=== PATIENT | male | born 1970 | race African-American/Black ===

== ENCOUNTER 2018-04-20 11:36 | Inpatient (IN) | payer OTHER ==
[2018-04-20 12:03] VITALS: BMI 24.9
--- NOTE | 2018-04-20 13:42 | HP ---
COWS - Scale Resting Pulse: 4= [place] > 121 Sweatin= Chills/Flushing Restless Observation: 3= Extraneous Movement Pupil Size: 0= Normal to Room Light Bone or Joint Aches: 4=Acute Joint/Muscle Pain Runny Nose/ Eye Tearin= None GI Upset > 30mins: 3= Vomiting/Diarrhea Tremor Observation: 1= Tremor [place], Not Seen Yawning Observation: 0= None Anxiety or Irritability: 1=Feels Anxious/Irritable Goose Flesh Skin: 0=Smooth Skin COWS Score: 17 CIWA Score - CIWA Score Nausea/Vomitin Muscle Tremors: 2 Anxiety: 4-Mod. Anxious/Guarded Agitation: 3 Paroxysmal Sweats: 1-Minimal Palms Moist Orientation: 0-Oriented Tacttile Disturbances: 0-None Auditory Disturbances: 0-None Visual Disturbances: 0-None Headache: 0-None Present CIWA-Ar Total Score: 15 Admission ROS S - HPI Chief Complaint: HEROIN AND ALCOHOL WITHDRAWAL SX Allergies/Adverse Reactions: Allergies Allergy/AdvReac Type Severity Reaction Status Date / Time No Known Allergies Allergy Verified 04/20/18 12:32 History of Present Illness: 47 Y/O AA/MALE WITH A HX OF HEROIN AND ALCOHOL DEPENDENCE SEEKING DETOX [place]. Exam Limitations: No Limitations, Clinical Condition - Ebola screening Have you traveled outside of the country in the last 21 days: No (N) Have you had contact with anyone from an Ebola affected area: No Have you been sick,other than usual withdrawal symptoms: No Do you have a fever: No - Review of Systems Constitutional: Chills, Loss of Appetite, Night Sweats, Changes in sleep, Unintentional Wgt. Loss EENT: reports: Tearing, Nose Congestion, Dental Problems (MISSING TEETH) Respiratory: reports: No Symptoms reported Cardiac: reports: No Symptoms Reported GI: reports: Diarrhea, Nausea, Poor Appetite, Poor Fluid Intake, Vomiting, Indigestion, Abdominal cramping : reports: No Symptoms Reported Musculoskeletal: reports: Back Pain, Joint Pain, Muscle Pain Integumentary: reports: Bruising (IVD INJ SITES ON BOTH ARMS RIGHT >LEFT ARM.) Neuro: reports: Tremors, Unsteady Gait (DUE TO ALCOHOL INTOXICATION) Endocrine: reports: No Symptoms Reported Hematology: reports: No Symptoms Reported Psychiatric: reports: Orientated x3 Other Systems: Reviewed and Negative Patient History - Patient Medical History Hx Anemia: No Hx Asthma: No Hx Chronic Obstructive Pulmonary Disease (COPD): No Hx Cancer: No Hx Cardiac Disorders: No Hx Congestive Heart Failure: No Hx Hypertension: No Hx Hypercholesterolemia: No Hx Pacemaker: No HX Cerebrovascular Accident: No Hx Seizures: No Hx Dementia: No Hx Diabetes: No Hx Gastrointestinal Disorders: No Hx Liver Disease: No Hx Genitourinary Disorders: No Hx Sexually Transmitted Disorders: No Hx Renal Disease (ESRD): No Hx Thyroid Disease: No Hx Human Immunodeficiency Virus (HIV): No (LAST NEGATIVE 2014) Hx Hepatitis C: No Hx Depression: No (BUT WANTS TO SEE PSYCH) Hx Suicide Attempt: No (DENIES S/I) Hx Bipolar Disorder: No Hx Schizophrenia: No Other Medical History: INSOMNIA AND WANTS TO SEE PSYCH - Patient Surgical History Past Surgical History: No Hx Neurologic Surgery: No Hx Cataract Extraction: No Hx Cardiac Surgery: No Hx Lung Surgery: No Hx Breast Surgery: No Hx Breast Biopsy: No Hx Abdominal Surgery: No Hx Appendectomy: No Hx Cholecystectomy: No Hx Genitourinary Surgery: No Hx Orthopedic Surgery: No Anesthesia Reaction: No - PPD History Previous Implant?: Yes Documented Results: Negative w/o proof Implanted On Prior R Admission?: Yes Date: 04/29/16 Results: 0 mm PPD to be Administered?: Yes - Reproductive History Patient is a Female of Child Bearing Age (11 -55 yrs old): No (MALE) - Smoking Cessation Smoking history: Current every day smoker Have you smoked in the past 12 months: Yes Aproximately how many cigarettes per day: 10 Cigars Per Day: 20 Hx Chewing Tobacco Use: No Initiated information on smoking cessation: Yes 'Breaking Loose' booklet given: 04/20/18 - Substance & Tx. History Hx Alcohol Use: Yes (VODKA/BEER) Hx Substance Use: Yes (HEROIN) Substance Use Type: Alcohol, Heroin Hx Substance Use Treatment: Yes (LAST TX AT [facility] IN 2016) - Substances Abused Heroin Route: Injection Frequency: Daily Amount used: 6-7 BAGS Age of first use: 31 Date of Last Use: 04/19/18 Alcohol Route: Oral Frequency: Daily Amount used: 1 PINT VODKA Age of first use: 21 Date of Last Use: 04/19/18 Family Disease History - Family Disease History Family History: Denies Admission Physical Exam BHS - Vital Signs Vital Signs: Vital Signs - 24 hr 04/20/18 11:58 Temperature 98.7 F Pulse Rate 137 H Respiratory 18 Rate Blood Pressure 117/76 - Physical General Appearance: Yes: Moderate Distress, Irritable, Anxious HEENTM: Yes: EOMI, Normocephalic, FORREST, Pharynx Normal Respiratory: Yes: Chest Non-Tender, Lungs Clear, Normal Breath Sounds, No Respiratory Distress Neck: Yes: No masses,lesions,Nodules, Supple, Trachea in good position Breast: Yes: Breast Exam Deferred Cardiology: Yes: Regular Rhythm, Regular Rate, S1, S2 Abdominal: Yes: Normal Bowel Sounds, Non Tender, Flat, Soft Genitourinary: Yes: Other (N/A) Back: Yes: Within Normal Limits Musculoskeletal: Yes: full range of Motion, Gait Steady Extremities: Yes: Normal Range of Motion, Non-Tender Neurological: Yes: senior production manager II-XII NML intact, Fully Oriented, Alert, Motor Strength 5/5 Integumentary: Yes: Dry, Warm Lymphatic: Yes: Within Normal Limits - Diagnostic (1) Cocaine dependence, uncomplicated Current Visit: Yes Status: Acute (2) Opioid dependence with withdrawal Current Visit: Yes Status: Acute (3) Weight decreased Current Visit: Yes Status: Acute (4) Nicotine dependence Current Visit: Yes Status: Acute Qualifiers: Nicotine product type: cigarettes Substance use status: in withdrawal Qualified Code(s): F17.213 - Nicotine dependence, cigarettes, with withdrawal Cleared for Admission [facility] - Detox or Rehab [facility] Level of Care: Medically Managed Detox Regimen/Protocol: Methadone/Librium [facility] Breath Alcohol Content Breath Alcohol Content: 0 Urine Drug Screen - Results Drug Screen Negative: No Urine Drug Screen Results: LYDIA-Cocaine, OPI-Opiates, BZO-Benzodiazepines, MTD- Methadone
[2018-04-20] MEDS ORDERED: MENTHOL/PHENOL 1 EACH UD MM PRN (13:58)
[2018-04-20] MEDS ORDERED: chlordiazePOXIDE HCL 25 MG CAPSULE PO PRN (13:58)
[2018-04-20] MEDS ORDERED: ACETAMINOPHEN 325 MG TABLET (FP) PO PRN (13:58)
[2018-04-20] MEDS ORDERED: P-EPHED 60MG/TRIPROLIDI 2.5MG TABLET PO PRN (13:58)
[2018-04-20] MEDS ORDERED: guaiFENesin/D-METHORPHAN HB 10 ML UNIT-DOSE CUPS PO PRN (13:58)
[2018-04-20] MEDS ORDERED: MAG HYDROX/AL HYDROX/SIMETH 30 ML UNIT-DOSE CUP PO PRN (13:58)
[2018-04-20] MEDS ORDERED: MAGNESIUM CITRATE 300 ML BOTTLE PO PRN (13:58)
[2018-04-20] MEDS ORDERED: MAGNESIUM HYDROX 2400MG/30ML ORAL SUSPENSION 30 ML CUP PO PRN (13:58)
[2018-04-20] MEDS ORDERED: IBUPROFEN 400 MG TABLET (FP) PO PRN (13:58)
[2018-04-20] MEDS ORDERED: LOPERAMIDE HCL 2 MG CAPSULE PO PRN (13:58)
[2018-04-20] MEDS ORDERED: NICOTINE POLACRILEX 2 MG GUM BUC PRN (14:01)
[2018-04-20] MEDS ORDERED: METHADONE HCL 10 MG TABLET (FOR DETOX USE ONLY) PO ONE ×2 (14:20→23:00)
[2018-04-20] MEDS: NICOTINE 14 MG/24 HOURS TOPICAL PATCH TD SCH (14:46)
--- NOTE | 2018-04-20 16:12 | CONSULT ---
[facility] Psychiatric Consult - Data Date of interview: 04/20/18 Admission source: [facility] Identifying data: Patient is a 47 year old single male, father of two, unemployed (not receiving any financial assistance), and currently residing with another individual. This is one of multiple admissions for patient. Pt. admitted to for cocaine and opiate dependence. Substance Abuse History: - Smoking Cessation. Smoking history: Current every day smoker. Have you smoked in the past 12 months: Yes. Aproximately how many cigarettes per day: 10. Cigars Per Day: 20. Hx Chewing Tobacco Use: No. Initiated information on smoking cessation: Yes. 'Breaking Loose' booklet given : 04/20/18. - Substance & Tx. History. Hx Alcohol Use: Yes (VODKA/BEER). Hx Substance Use: Yes (HEROIN). Substance Use Type: Alcohol, Heroin. Hx Substance Use Treatment: Yes (LAST TX AT [facility] IN 2015). - Substances Abused. Heroin. Route: Injection. Frequency: Daily. Amount used: 6-7 BAGS. Age of first use: 31. Date of Last Use: 04/19/18. Alcohol. Route: Oral. Frequency: Daily. Amount used: 1 PINT VODKA. Age of first use: 21. Date of Last Use: 04/19/18 Psychiatric History: Patient denies h/o psychiatric hospitalizations, outpatient care, and suicide attempt. Pt. reports difficulty sleeping. Physical/Sexual Abuse/Trauma History: Denies. Mental Status Exam - Mental Status Exam Alert and Oriented to: Time, Place, Person Cognitive Function: Good Patient Appearance: Well Groomed Mood: Euthymic Affect: Mood Congruent Patient Behavior: Cooperative Speech Pattern: Clear, Appropriate Voice Loudness: Normal Thought Process: Intact, Goal Oriented Thought Disorder: Not Present Hallucinations: Denies Suicidal Ideation: Denies Homicidal Ideation: Denies Insight/Judgement: Poor Sleep: Poorly Appetite: Fair Muscle strength/Tone: Normal Gait/Station: Normal Psychiatric Findings - Problem List ([place] 1, 2,3) (1) Substance-induced sleep disorder Current Visit: Yes Status: Acute (2) Cocaine dependence, uncomplicated Current Visit: Yes Status: Acute (3) Nicotine dependence Current Visit: Yes Status: Acute Qualifiers: Nicotine product type: cigarettes Substance use status: in withdrawal Qualified Code(s): F17.213 - Nicotine dependence, cigarettes, with withdrawal (4) Opioid dependence with withdrawal Current Visit: Yes Status: Acute (5) Substance induced mood disorder Current Visit: Yes Status: Acute - Initial Treatment Plan Initial Treatment Plan: Psychoeducation provided. Detoxifcation in progress. Ambien 10mg qhs prn ordered. Benefits and side effects discussed. Pt. made aware of the risk of parasomnia. Verbal consent given.
[2018-04-20 17:46] LABS: HEMATOCRIT 39.2 % (35.4-49); HEMOGLOBIN 12.8 GM/dL (11.7-16.9); MCH 27.7 pg (25.7-33.7); MCHC 32.6 g/dl (32.0-35.9); PLATELET COUNT 230 K/MM3 (134-434); RBC 4.61 M/mm3 (4.00-5.60); RDW 19.7 % (11.9-15.9); WHITE BLOOD COUNT 9.4 K/mm3 (4.0-10.0)
[2018-04-20 17:51] LABS: URINE APPEARANCE SLCLOUDY; URINE BILIRUBIN NEGATIVE (<2.0 mg/dL); URINE COLOR YELLOW; URINE GLUCOSE (UA) NEGATIVE (NEGATIVE); URINE KETONE NEGATIVE (NEGATIVE); URINE LEUK ESTERASE NEGATIVE (NEGATIVE); URINE NITRITE NEGATIVE (NEGATIVE); URINE PROTEIN NEGATIVE (NEGATIVE); URINE UROBILINOGEN NEGATIVE mg/dL (0.2-1.0)
[2018-04-20] MEDS: chlordiazePOXIDE HCL 25 MG CAPSULE PO SCH ×2 (18:16→22:11)
[2018-04-20 19:14] LABS: ALBUMIN 4.2 g/dl (3.4-5.0); ANION GAP 10 (8-16); BLOOD UREA NITROGEN 41 mg/dL (7-18); CALCIUM 8.9 mg/dL (8.5-10.1); CHLORIDE 98 mmol/L (98-107); CO2 26 mmol/L (21-32); GLUCOSE,RANDOM 199 mg/dL (74-106); POTASSIUM 5.2 mmol/L (3.5-5.1); SGOT/AST 34 U/L (15-37); SGPT/ALT 43 U/L (12-78); SODIUM 134 mmol/L (136-145)
[2018-04-20 19:17] LABS: ALK PHOS 80 U/L (45-117); BILIRUBIN,TOTAL 0.4 mg/dL (0.2-1.0); TOT PROT 8.2 g/dl (6.4-8.2)
[2018-04-20] MEDS ORDERED: MELATONIN 5 MG TABLETS PO PRN (22:00)
[2018-04-20] MEDS: THIAMINE HCL 100 MG TABLET (FP) PO SCH (22:10)
[2018-04-20] MEDS: ZOLPIDEM TARTRATE 10 MG TABLET (PARK CARE ONLY) PO PRN (22:11)
[2018-04-21] MEDS: chlordiazePOXIDE HCL 25 MG CAPSULE PO SCH ×4 (05:29→23:20)
[2018-04-21] MEDS ORDERED: METHADONE HCL 10 MG TABLET (FOR DETOX USE ONLY) PO SCH (10:00)
[2018-04-21] MEDS: PRENATAL VITAMINS W/ FOLIC ACID TABLET (FP) PO SCH (10:53)
[2018-04-21] MEDS: NICOTINE 14 MG/24 HOURS TOPICAL PATCH TD SCH (10:53)
--- NOTE | 2018-04-21 12:49 | PN ---
S CIWA - CIWA Score Nausea/Vomitin Muscle Tremors: 3 Anxiety: 3 Agitation: 3 Paroxysmal Sweats: 1-Minimal Palms Moist Orientation: 0-Oriented Tacttile Disturbances: 1-Very Mild Itch/Numbness Auditory Disturbances: 1-Very Mild Visual Disturbances: 0-None Headache: 2-Mild CIWA-Ar Total Score: 17 BHS COWS - Scale Resting Pulse: 2= [place] 101-120 Sweatin= Chills/Flushing Restless Observation: 3= Extraneous Movement Pupil Size: 1= Pupils >than Normal Bone or Joint Aches: 2= Severe Diffuse Aches Runny Nose/ Eye Tearin= Nasal Congestion GI Upset > 30mins: 2= Nausea/Diarrhea Tremor Observation of Outstretched Hands: 2= Slight Tremor Visible Yawning Observation: 1= 1-2x During Session Anxiety or Irritability: 2=Irritable/Anxious Goose Flesh Skin: 0=Smooth Skin COWS Score: 17 S Progress Note (SOAP) Subjective: alert,irritable anxious,interrupted sleep,tremor,pain in the body and back Objective: 04/21/18 12:46 Vital Signs Temperature 96.4 F L 04/21/18 10:28 Pulse Rate 105 H 04/21/18 10:28 Respiratory Rate 16 04/21/18 10:28 Blood Pressure 125/64 04/21/18 10:28 O2 Sat by Pulse Oximetry (%) ekg sinus tachycardia 123/min qt 308/440 no chest pain,no sob,no dizziness 04/21/18 12:48 Laboratory Last Values WBC 9.4 K/mm3 (4.0-10.0) D 04/20/18 14:00 RBC 4.61 M/mm3 (4.00-5.60) 04/20/18 14:00 Hgb 12.8 GM/dL (11.7-16.9) 04/20/18 14:00 Hct 39.2 % (35.4-49) 04/20/18 14:00 MCV 85.0 fl (80-96) 04/20/18 14:00 MCH 27.7 pg (25.7-33.7) 04/20/18 14:00 MCHC 32.6 g/dl (32.0-35.9) 04/20/18 14:00 RDW 19.7 % (11.9-15.9) H 04/20/18 14:00 Plt Count 230 K/MM3 (134-434) 04/20/18 14:00 MPV 10.0 fl (7.5-11.1) 04/20/18 14:00 Sodium 134 mmol/L (136-145) L 04/20/18 14:00 Potassium 5.2 mmol/L (3.5-5.1) H 04/20/18 14:00 Chloride 98 mmol/L (98-107) 04/20/18 14:00 Carbon Dioxide 26 mmol/L (21-32) 04/20/18 14:00 Anion Gap 10 (8-16) 04/20/18 14:00 BUN 41 mg/dL (7-18) H D 04/20/18 14:00 Creatinine 2.0 mg/dL (0.7-1.3) H D 04/20/18 14:00 Creat Clearance w eGFR 36.15 (>60) 04/20/18 14:00 Random Glucose 199 mg/dL (74-106) H D 04/20/18 14:00 Calcium 8.9 mg/dL (8.5-10.1) 04/20/18 14:00 Total Bilirubin 0.4 mg/dL (0.2-1.0) 04/20/18 14:00 AST 34 U/L (15-37) D 04/20/18 14:00 ALT 43 U/L (12-78) D 04/20/18 14:00 Alkaline Phosphatase 80 U/L (45-117) 04/20/18 14:00 Total Protein 8.2 g/dl (6.4-8.2) 04/20/18 14:00 Albumin 4.2 g/dl (3.4-5.0) 04/20/18 14:00 Urine Color Yellow 04/20/18 14:00 Urine Appearance Slcloudy 04/20/18 14:00 Urine pH 5.0 (5.0-8.0) 04/20/18 14:00 Ur Specific [place] 1.019 (1.001-1.035) 04/20/18 14:00 Urine Protein Negative (NEGATIVE) 04/20/18 14:00 Urine Glucose (UA) Negative (NEGATIVE) 04/20/18 14:00 Urine Ketones Negative (NEGATIVE) 04/20/18 14:00 Urine Blood Negative (NEGATIVE) 04/20/18 14:00 Urine Nitrite Negative (NEGATIVE) 04/20/18 14:00 Urine Bilirubin Negative (<2.0 mg/dL) 04/20/18 14:00 Urine Urobilinogen Negative mg/dL (0.2-1.0) 04/20/18 14:00 Ur Leukocyte Esterase Negative (NEGATIVE) 04/20/18 14:00 Assessment: 04/21/18 12:49 withdrawal symptom Plan: continue detox,encourage oral fluid,repeat cmp in am
--- NOTE | 2018-04-21 14:51 | EKG ---
Test Reason : Blood Pressure : / mmHG Vent. Rate : 123 BPM Atrial Rate : 123 BPM P-R Int : 126 ms QRS Dur : 082 ms QT Int : 308 ms P-R-T Axes : 063 033 034 degrees QTc Int : 440 ms SINUS TACHYCARDIA OTHERWISE NORMAL ECG NO PREVIOUS ECGS AVAILABLE Confirmed by MD Gaines Daniel ([id number]) on 04/21/2018 2:50:44 PM Referred By: Confirmed By:Andrew Gaines MD
[2018-04-21] MEDS: ZOLPIDEM TARTRATE 10 MG TABLET (PARK CARE ONLY) PO PRN (23:20)
[2018-04-21] MEDS: THIAMINE HCL 100 MG TABLET (FP) PO SCH (23:20)
[2018-04-22] MEDS: chlordiazePOXIDE HCL 25 MG CAPSULE PO SCH ×2 (06:30→12:11)
[2018-04-22 10:08] LABS: CHLORIDE 107 mmol/L (98-107); POTASSIUM 4.7 mmol/L (3.5-5.1); SODIUM 136 mmol/L (136-145)
[2018-04-22 10:26] LABS: ALBUMIN 3.6 g/dl (3.4-5.0); ALK PHOS 73 U/L (45-117); ANION GAP 4 (8-16); BILIRUBIN,TOTAL 0.2 mg/dL (0.2-1.0); BLOOD UREA NITROGEN 18 mg/dL (7-18); CALCIUM 9.2 mg/dL (8.5-10.1); CO2 25 mmol/L (21-32); GLUCOSE,RANDOM 207 mg/dL (74-106); SGOT/AST 22 U/L (15-37); SGPT/ALT 41 U/L (12-78); TOT PROT 7.4 g/dl (6.4-8.2)
[2018-04-22] MEDS: NICOTINE 14 MG/24 HOURS TOPICAL PATCH TD SCH (12:09)
[2018-04-22] MEDS: METHADONE HCL 5 MG TABLET (FOR DETOX USE ONLY) PO SCH (12:11)
[2018-04-22] MEDS: PRENATAL VITAMINS W/ FOLIC ACID TABLET (FP) PO SCH (12:11)
[2018-04-22] MEDS ORDERED: ONDANSETRON *ODT* 4 MG TABLET SL ONE (13:05)
--- NOTE | 2018-04-22 13:10 | PN ---
[facility] CIWA - CIWA Score Nausea/Vomitin-Mild Nausea/No Vomiting Muscle Tremors: 4-Moderate,w/Arms Extend Anxiety: 3 Agitation: 3 Paroxysmal Sweats: 1-Minimal Palms Moist Orientation: 0-Oriented Tacttile Disturbances: 1-Very Mild Itch/Numbness Auditory Disturbances: 0-None Visual Disturbances: 0-None Headache: 0-None Present CIWA-Ar Total Score: 13 BHS COWS - Scale Resting Pulse: 1= [place] 81-100 Sweatin= Chills/Flushing Restless Observation: 1= Difficult to Sit Still Pupil Size: 0= Normal to Room Light Bone or Joint Aches: 2= Severe Diffuse Aches Runny Nose/ Eye Tearin= Nasal Congestion GI Upset > 30mins: 2= Nausea/Diarrhea Tremor Observation of Outstretched Hands: 2= Slight Tremor Visible Yawning Observation: 1= 1-2x During Session Anxiety or Irritability: 2=Irritable/Anxious Goose Flesh Skin: 0=Smooth Skin COWS Score: 13 [facility] Progress Note (SOAP) Subjective: joint pain body ache sweat tremor trouble sleep at night Objective: 04/22/18 13:09 Vital Signs Temperature 98 F 04/22/18 09:56 Pulse Rate 97 H 04/22/18 09:56 Respiratory Rate 20 04/22/18 09:56 Blood Pressure 131/79 04/22/18 09:56 O2 Sat by Pulse Oximetry (%) Laboratory Last Values WBC 9.4 K/mm3 (4.0-10.0) D 04/20/18 14:00 RBC 4.61 M/mm3 (4.00-5.60) 04/20/18 14:00 Hgb 12.8 GM/dL (11.7-16.9) 04/20/18 14:00 Hct 39.2 % (35.4-49) 04/20/18 14:00 MCV 85.0 fl (80-96) 04/20/18 14:00 MCH 27.7 pg (25.7-33.7) 04/20/18 14:00 MCHC 32.6 g/dl (32.0-35.9) 04/20/18 14:00 RDW 19.7 % (11.9-15.9) H 04/20/18 14:00 Plt Count 230 K/MM3 (134-434) 04/20/18 14:00 MPV 10.0 fl (7.5-11.1) 04/20/18 14:00 Sodium 136 mmol/L (136-145) 04/22/18 08:50 Potassium 4.7 mmol/L (3.5-5.1) 04/22/18 08:50 Chloride 107 mmol/L (98-107) 04/22/18 08:50 Carbon Dioxide 25 mmol/L (21-32) 04/22/18 08:50 Anion Gap 4 (8-16) L 04/22/18 08:50 BUN 18 mg/dL (7-18) D 04/22/18 08:50 Creatinine 1.0 mg/dL (0.7-1.3) D 04/22/18 08:50 Creat Clearance w eGFR > 60 (>60) 04/22/18 08:50 Random Glucose 207 mg/dL (74-106) H 04/22/18 08:50 Calcium 9.2 mg/dL (8.5-10.1) 04/22/18 08:50 Total Bilirubin 0.2 mg/dL (0.2-1.0) D 04/22/18 08:50 AST 22 U/L (15-37) D 04/22/18 08:50 ALT 41 U/L (12-78) 04/22/18 08:50 Alkaline Phosphatase 73 U/L (45-117) 04/22/18 08:50 Total Protein 7.4 g/dl (6.4-8.2) 04/22/18 08:50 Albumin 3.6 g/dl (3.4-5.0) 04/22/18 08:50 Urine Color Yellow 04/20/18 14:00 Urine Appearance Slcloudy 04/20/18 14:00 Urine pH 5.0 (5.0-8.0) 04/20/18 14:00 Ur Specific [place] 1.019 (1.001-1.035) 04/20/18 14:00 Urine Protein Negative (NEGATIVE) 04/20/18 14:00 Urine Glucose (UA) Negative (NEGATIVE) 04/20/18 14:00 Urine Ketones Negative (NEGATIVE) 04/20/18 14:00 Urine Blood Negative (NEGATIVE) 04/20/18 14:00 Urine Nitrite Negative (NEGATIVE) 04/20/18 14:00 Urine Bilirubin Negative (<2.0 mg/dL) 04/20/18 14:00 Urine Urobilinogen Negative mg/dL (0.2-1.0) 04/20/18 14:00 Ur Leukocyte Esterase Negative (NEGATIVE) 04/20/18 14:00 RPR Titer Nonreactive (NONREACTIVE) 04/20/18 14:00 lab noted Assessment: 04/22/18 13:09 withdrawal sx Plan: continue detox
[2018-04-22] MEDS: chlordiazePOXIDE 5 MG CAPSULE PO SCH ×2 (17:55→22:10)
[2018-04-22] MEDS: THIAMINE HCL 100 MG TABLET (FP) PO SCH (22:10)
[2018-04-23] MEDS: chlordiazePOXIDE 5 MG CAPSULE PO SCH ×2 (06:33→11:34)
--- NOTE | 2018-04-23 11:03 | PN ---
S Progress Note (SOAP) Subjective: alert,irritable,anxious,interrupted sleep,pain in the body Objective: 04/23/18 11:01 Vital Signs Temperature 96.6 F L 04/23/18 09:20 Pulse Rate 99 H 04/23/18 09:20 Respiratory Rate 18 04/23/18 09:20 Blood Pressure 153/85 04/23/18 09:20 O2 Sat by Pulse Oximetry (%) 04/23/18 11:06 Laboratory Last Values WBC 9.4 K/mm3 (4.0-10.0) D 04/20/18 14:00 RBC 4.61 M/mm3 (4.00-5.60) 04/20/18 14:00 Hgb 12.8 GM/dL (11.7-16.9) 04/20/18 14:00 Hct 39.2 % (35.4-49) 04/20/18 14:00 MCV 85.0 fl (80-96) 04/20/18 14:00 MCH 27.7 pg (25.7-33.7) 04/20/18 14:00 MCHC 32.6 g/dl (32.0-35.9) 04/20/18 14:00 RDW 19.7 % (11.9-15.9) H 04/20/18 14:00 Plt Count 230 K/MM3 (134-434) 04/20/18 14:00 MPV 10.0 fl (7.5-11.1) 04/20/18 14:00 Sodium 136 mmol/L (136-145) 04/22/18 08:50 Potassium 4.7 mmol/L (3.5-5.1) 04/22/18 08:50 Chloride 107 mmol/L (98-107) 04/22/18 08:50 Carbon Dioxide 25 mmol/L (21-32) 04/22/18 08:50 Anion Gap 4 (8-16) L 04/22/18 08:50 BUN 18 mg/dL (7-18) D 04/22/18 08:50 Creatinine 1.0 mg/dL (0.7-1.3) D 04/22/18 08:50 Creat Clearance w eGFR > 60 (>60) 04/22/18 08:50 Random Glucose 207 mg/dL (74-106) H 04/22/18 08:50 Calcium 9.2 mg/dL (8.5-10.1) 04/22/18 08:50 Total Bilirubin 0.2 mg/dL (0.2-1.0) D 04/22/18 08:50 AST 22 U/L (15-37) D 04/22/18 08:50 ALT 41 U/L (12-78) 04/22/18 08:50 Alkaline Phosphatase 73 U/L (45-117) 04/22/18 08:50 Total Protein 7.4 g/dl (6.4-8.2) 04/22/18 08:50 Albumin 3.6 g/dl (3.4-5.0) 04/22/18 08:50 Urine Color Yellow 04/20/18 14:00 Urine Appearance Slcloudy 04/20/18 14:00 Urine pH 5.0 (5.0-8.0) 04/20/18 14:00 Ur Specific [place] 1.019 (1.001-1.035) 04/20/18 14:00 Urine Protein Negative (NEGATIVE) 04/20/18 14:00 Urine Glucose (UA) Negative (NEGATIVE) 04/20/18 14:00 Urine Ketones Negative (NEGATIVE) 04/20/18 14:00 Urine Blood Negative (NEGATIVE) 04/20/18 14:00 Urine Nitrite Negative (NEGATIVE) 04/20/18 14:00 Urine Bilirubin Negative (<2.0 mg/dL) 04/20/18 14:00 Urine Urobilinogen Negative mg/dL (0.2-1.0) 04/20/18 14:00 Ur Leukocyte Esterase Negative (NEGATIVE) 04/20/18 14:00 RPR Titer Nonreactive (NONREACTIVE) 04/20/18 14:00 04/23/18 11:06 bgm 204 Assessment: 04/23/18 11:02 withdrawal symptom Plan: continue detox,ncs,glucerna 1 can po bid,bgm monitoring
[2018-04-23] MEDS: PRENATAL VITAMINS W/ FOLIC ACID TABLET (FP) PO SCH (11:34)
[2018-04-23] MEDS: METHADONE HCL 5 MG TABLET (FOR DETOX USE ONLY) PO SCH (11:34)
[2018-04-23] MEDS: NICOTINE 14 MG/24 HOURS TOPICAL PATCH TD SCH (11:34)
[2018-04-23] MEDS: chlordiazePOXIDE HCL 10 MG CAPSULE PO SCH ×2 (18:14→22:08)
[2018-04-23] MEDS: THIAMINE HCL 100 MG TABLET (FP) PO SCH (22:08)
[2018-04-23] MEDS: ZOLPIDEM TARTRATE 10 MG TABLET (PARK CARE ONLY) PO PRN (22:08)
[2018-04-24] MEDS: chlordiazePOXIDE HCL 10 MG CAPSULE PO SCH ×2 (06:15→10:19)
[2018-04-24] MEDS ORDERED: METHADONE HCL 10 MG TABLET (FOR DETOX USE ONLY) PO SCH (10:00)
[2018-04-24] MEDS: PRENATAL VITAMINS W/ FOLIC ACID TABLET (FP) PO SCH (10:18)
[2018-04-24] MEDS: NICOTINE 14 MG/24 HOURS TOPICAL PATCH TD SCH (10:20)
--- NOTE | 2018-04-24 13:52 | PN ---
[facility] Progress Note (SOAP) Subjective: Fatigue, Interrupted Sleep, Anxious. Objective: PATIENT A & O X 3, OBSERVED AMBULATING ON UNIT. NO ACUTE DISTRESS. 04/24/18 13:53 Vital Signs Temperature 97.0 F L 04/24/18 09:15 Pulse Rate 100 H 04/24/18 09:15 Respiratory Rate 20 04/24/18 09:15 Blood Pressure 145/81 04/24/18 09:15 O2 Sat by Pulse Oximetry (%) Laboratory Tests 04/20/18 04/20/18 04/20/18 14:00 14:00 14:00 WBC 9.4 D RBC 4.61 Hgb 12.8 Hct 39.2 MCV 85.0 MCH 27.7 MCHC 32.6 RDW 19.7 H Plt Count 230 MPV 10.0 Sodium 134 L Potassium 5.2 H Chloride 98 Carbon Dioxide 26 Anion Gap 10 BUN 41 H D Creatinine 2.0 H D Creat Clearance w eGFR 36.15 Random Glucose 199 H D Calcium 8.9 Total Bilirubin 0.4 AST 34 D ALT 43 D Alkaline Phosphatase 80 Total Protein 8.2 Albumin 4.2 Urine Color Urine Appearance Urine pH Ur Specific [place] Urine Protein Urine Glucose (UA) Urine Ketones Urine Blood Urine Nitrite Urine Bilirubin Urine Urobilinogen Ur Leukocyte Esterase RPR Titer Nonreactive 04/20/18 04/22/18 14:00 08:50 WBC RBC Hgb Hct MCV MCH MCHC RDW Plt Count MPV Sodium 136 Potassium 4.7 Chloride 107 Carbon Dioxide 25 Anion Gap 4 L BUN 18 D Creatinine 1.0 D Creat Clearance w eGFR > 60 Random Glucose 207 H Calcium 9.2 Total Bilirubin 0.2 D AST 22 D ALT 41 Alkaline Phosphatase 73 Total Protein 7.4 Albumin 3.6 Urine Color Yellow Urine Appearance Slcloudy Urine pH 5.0 Ur Specific [place] 1.019 Urine Protein Negative Urine Glucose (UA) Negative Urine Ketones Negative Urine Blood Negative Urine Nitrite Negative Urine Bilirubin Negative Urine Urobilinogen Negative Ur Leukocyte Esterase Negative RPR Titer LABS NOTED. Assessment: 04/24/18 13:53 WITHDRAWAL SYMPTOMS. Plan: CONTINUE DETOX. PATIENT SCHEDULED FOR D/C TOMORROW.
[2018-04-24 21:36] VITALS: TEMP 98.7
[2018-04-24] MEDS: THIAMINE HCL 100 MG TABLET (FP) PO SCH (22:12)
[2018-04-24] MEDS ORDERED: MELATONIN 5 MG TABLETS PO PRN (22:24)
[2018-04-25] MEDS ORDERED: METHADONE HCL 5 MG TABLET (FOR DETOX USE ONLY) PO SCH (06:00)
[2018-04-25 06:53] VITALS: BP 117/68; PULSE 82
[2018-04-25] MEDS: PRENATAL VITAMINS W/ FOLIC ACID TABLET (FP) PO SCH (11:09)
[2018-04-25] MEDS: NICOTINE 14 MG/24 HOURS TOPICAL PATCH TD SCH (11:09)
--- NOTE | 2018-04-25 13:44 | PN ---
[facility] Progress Note (SOAP) Subjective: Patient denies current Detox symptoms and reports that he feels well overall. Objective: PATIENT A & O X 3, OBSERVED AMBULATING ON UNIT. NO ACUTE DISTRESS. 04/25/18 13:43 Vital Signs Temperature 98.7 F 04/25/18 06:52 Pulse Rate 82 04/25/18 06:52 Respiratory Rate 16 04/25/18 06:52 Blood Pressure 117/68 04/25/18 06:52 O2 Sat by Pulse Oximetry (%) Laboratory Tests 04/20/18 04/20/18 04/20/18 14:00 14:00 14:00 WBC 9.4 D RBC 4.61 Hgb 12.8 Hct 39.2 MCV 85.0 MCH 27.7 MCHC 32.6 RDW 19.7 H Plt Count 230 MPV 10.0 Sodium 134 L Potassium 5.2 H Chloride 98 Carbon Dioxide 26 Anion Gap 10 BUN 41 H D Creatinine 2.0 H D Creat Clearance w eGFR 36.15 Random Glucose 199 H D Calcium 8.9 Total Bilirubin 0.4 AST 34 D ALT 43 D Alkaline Phosphatase 80 Total Protein 8.2 Albumin 4.2 Urine Color Urine Appearance Urine pH Ur Specific [place] Urine Protein Urine Glucose (UA) Urine Ketones Urine Blood Urine Nitrite Urine Bilirubin Urine Urobilinogen Ur Leukocyte Esterase RPR Titer Nonreactive 04/20/18 04/22/18 14:00 08:50 WBC RBC Hgb Hct MCV MCH MCHC RDW Plt Count MPV Sodium 136 Potassium 4.7 Chloride 107 Carbon Dioxide 25 Anion Gap 4 L BUN 18 D Creatinine 1.0 D Creat Clearance w eGFR > 60 Random Glucose 207 H Calcium 9.2 Total Bilirubin 0.2 D AST 22 D ALT 41 Alkaline Phosphatase 73 Total Protein 7.4 Albumin 3.6 Urine Color Yellow Urine Appearance Slcloudy Urine pH 5.0 Ur Specific [place] 1.019 Urine Protein Negative Urine Glucose (UA) Negative Urine Ketones Negative Urine Blood Negative Urine Nitrite Negative Urine Bilirubin Negative Urine Urobilinogen Negative Ur Leukocyte Esterase Negative RPR Titer LABS NOTED. Assessment: 04/25/18 13:43 COMPLETION OF DETOX REGIMEN. Plan: PATIENT SCHEDULED FOR DISCHARGE FROM DETOX UNIT TODAY.
--- NOTE | 2018-04-25 13:46 | DS ---
[facility] Detox Discharge Summary Admission Date: 04/20/18 Discharge Date: 04/25/18 - History Present History: Cocaine Dependence, Opioid Dependence Additional Comments: [facility] ([place] FOR AFTERCARE. PATIENT WAS DISCHARGED ROM DETOX UNIT IN STABLE MEDICAL CONDITION. Pertinent Past History: Weight Loss, Nicotine Dependence. - Physical Exam Results Vital Signs: Vital Signs Temperature 98.7 F 04/25/18 06:52 Pulse Rate 82 04/25/18 06:52 Respiratory Rate 16 04/25/18 06:52 Blood Pressure 117/68 04/25/18 06:52 O2 Sat by Pulse Oximetry (%) Pertinent Admission Physical Exam Findings: WITHDRAWAL SYMPTOMS. Laboratory Tests 04/20/18 04/20/18 04/20/18 14:00 14:00 14:00 WBC 9.4 D RBC 4.61 Hgb 12.8 Hct 39.2 MCV 85.0 MCH 27.7 MCHC 32.6 RDW 19.7 H Plt Count 230 MPV 10.0 Sodium 134 L Potassium 5.2 H Chloride 98 Carbon Dioxide 26 Anion Gap 10 BUN 41 H D Creatinine 2.0 H D Creat Clearance w eGFR 36.15 Random Glucose 199 H D Calcium 8.9 Total Bilirubin 0.4 AST 34 D ALT 43 D Alkaline Phosphatase 80 Total Protein 8.2 Albumin 4.2 Urine Color Urine Appearance Urine pH Ur Specific [place] Urine Protein Urine Glucose (UA) Urine Ketones Urine Blood Urine Nitrite Urine Bilirubin Urine Urobilinogen Ur Leukocyte Esterase RPR Titer Nonreactive 04/20/18 04/22/18 14:00 08:50 WBC RBC Hgb Hct MCV MCH MCHC RDW Plt Count MPV Sodium 136 Potassium 4.7 Chloride 107 Carbon Dioxide 25 Anion Gap 4 L BUN 18 D Creatinine 1.0 D Creat Clearance w eGFR > 60 Random Glucose 207 H Calcium 9.2 Total Bilirubin 0.2 D AST 22 D ALT 41 Alkaline Phosphatase 73 Total Protein 7.4 Albumin 3.6 Urine Color Yellow Urine Appearance Slcloudy Urine pH 5.0 Ur Specific [place] 1.019 Urine Protein Negative Urine Glucose (UA) Negative Urine Ketones Negative Urine Blood Negative Urine Nitrite Negative Urine Bilirubin Negative Urine Urobilinogen Negative Ur Leukocyte Esterase Negative RPR Titer LABS NOTED. - Treatment Hospital Course: Detox Protocol Followed, Detoxed Safely, Responded well, Discharged Condition Good, Rehab Referral Accepted Patient has Accepted a Rehab Referral to: [facility] ([place] - Medication Discharge Medications: Ambulatory Orders NK [No Known Home Medication] 07/10/14 - Diagnosis (1) Cocaine dependence, uncomplicated Status: Acute (2) Nicotine dependence Status: Acute Qualifiers: Nicotine product type: cigarettes Substance use status: in withdrawal Qualified Code(s): F17.213 - Nicotine dependence, cigarettes, with withdrawal (3) Opioid dependence with withdrawal Status: Acute (4) Weight decreased Status: Acute (5) Substance induced mood disorder Status: Acute (6) Substance-induced sleep disorder Status: Acute - AMA Did Patient Leave Against Medical Advice: No
== END 2018-04-25 12:10 | disposition home or self-care (01) | DRG 773 ==
LOC: YASAS 11:36 → Y6N 13:54 → Y3N 04-23 23:20
PROVIDERS: ADMIT Surgery; ATTEND Surgery
PROC: HZ2ZZZZ Detoxification Services for Substance Abuse Treatment (ICD-10-PCS; principal; 2018-04-20)
DX: F11.23 Opioid dependence with withdrawal (principal); F14.20 Cocaine dependence, uncomplicated; F17.213 Nicotine dependence, cigarettes, with withdrawal; F19.24 Other psychoactive substance dependence with psychoactive substance-induced mood disorder; F19.282 Other psychoactive substance dependence with psychoactive substance-induced sleep disorder; N28.9 Disorder of kidney and ureter, unspecified; R00.0 Tachycardia, unspecified; Z87.898 Personal history of other specified conditions; Z59.0 Homelessness
CPT/HCPCS: 36415; 80053; 81003; 85027; 86593; 93005; 93010; Q0162

== ENCOUNTER 2018-09-28 16:54 | Inpatient (IN) | payer OTHER ==
[2018-09-28 17:36] VITALS: BMI 23.8
[2018-09-28] MEDS ORDERED: MELATONIN 5 MG TABLETS PO PRN (22:00)
--- NOTE | 2018-09-28 22:07 | HP ---
"CIWA Score - Admission Criteria OASAS Guidelines: Admission for Medically Managed Detox: Requires at least one of the followin. CIWA greater than 12 2. Seizures within the past 24 hours 3. Delirium tremens within the past 24 hours 4. Hallucinations within the past 24 hours 5. Acute intervention needed for co occurring medical disorder 6. Acute intervention needed for co occurring psychiatric disorder 7. Severe withdrawal that cannot be handled at a lower level of care (continued vomiting, continued diarrhea, abnormal vital signs) requiring intravenous medication and/or fluids 8. Admission ROS S - [facility] Chief Complaint: Here for rehab for heroin and cocaine Allergies/Adverse Reactions: Allergies Allergy/AdvReac Type Severity Reaction Status Date / Time No Known Allergies Allergy Verified 09/28/18 18:11 History of Present Illness: Hx heroin use since age 31. IVDU. Denies sharing needles or works. Cocaine use since age 31. Nicotine use since age 14. Last used heroin 8 days ago. Last used cocaine 8 days ago. Was detoxed at [facility] and discharged from there today. States received PPD at [facility] and it was negative. Denies hx Blackouts/seizures/overdose. Denies hx HTN, chest pain, heart attack. Denies depression, thoughts of harming self or others. Search Terms: Adam Wright, 1970 Search Date: 09/28/2018 10:10:10 PM The Drug Utilization Report below displays all of the controlled substance prescriptions, if any, that your patient has filled in the last twelve months. The information displayed on this report is compiled from pharmacy submissions to the Department, and accurately reflects the information as submitted by the pharmacies. This report was requested by: Karla Grover | Reference #: [id number] There are no results for the search terms that you entered. Exam Limitations: No Limitations - Ebola screening Have you traveled outside of the country in the last 21 days: No (N) Have you had contact with anyone from an Ebola affected area: No Have you been sick,other than usual withdrawal symptoms: No Do you have a fever: No - Review of Systems Constitutional: Changes in sleep (Difficulty faling asleep.) EENT: reports: No Symptoms Reported Respiratory: reports: No Symptoms reported Cardiac: reports: No Symptoms Reported GI: reports: No Symptoms Reported : reports: No Symptoms Reported Musculoskeletal: reports: No Symptoms Reported Integumentary: reports: No Symptoms Reported Neuro: reports: Tremors (r/t withdrawal) Endocrine: reports: No Symptoms Reported Hematology: reports: No Symptoms Reported Psychiatric: reports: Judgement Intact, Orientated x3 Patient History - Patient Medical History Hx Anemia: No Hx Asthma: No Hx Chronic Obstructive Pulmonary Disease (COPD): No Hx Cancer: No Hx Cardiac Disorders: No Hx Congestive Heart Failure: No Hx Hypertension: No Hx Hypercholesterolemia: No Hx Pacemaker: No HX Cerebrovascular Accident: No Hx Seizures: No Hx Dementia: No Hx Diabetes: No Hx Gastrointestinal Disorders: No Hx Liver Disease: No Hx Genitourinary Disorders: No Hx Sexually Transmitted Disorders: No Hx Renal Disease (ESRD): No Hx Thyroid Disease: No Hx Human Immunodeficiency Virus (HIV): No (LAST NEGATIVE 2014) Hx Hepatitis C: No Hx Depression: No (BUT WANTS TO SEE PSYCH) Hx Suicide Attempt: No (DENIES S/I) Hx Bipolar Disorder: No Hx Schizophrenia: No - Patient Surgical History Past Surgical History: No Hx Neurologic Surgery: No Hx Cataract Extraction: No Hx Cardiac Surgery: No Hx Lung Surgery: No Hx Breast Surgery: No Hx Breast Biopsy: No Hx Abdominal Surgery: No Hx Appendectomy: No Hx Cholecystectomy: No Hx Genitourinary Surgery: No Hx Section: No Hx Orthopedic Surgery: No Anesthesia Reaction: No - PPD History Previous Implant?: No Date: 04/22/18 Results: 0 mm - Smoking Cessation Smoking history: Current every day smoker Have you smoked in the past 12 months: Yes Aproximately how many cigarettes per day: 10 Cigars Per Day: 20 Hx Chewing Tobacco Use: No Initiated information on smoking cessation: Yes 'Breaking Loose' booklet given: 09/28/18 - Substance & Tx. History Hx Substance Use: Yes Substance Use Type: Cocaine, Heroin Hx Substance Use Treatment: Yes (detox, ) - Substances Abused Heroin Route: Injection Frequency: Daily Amount used: 10 bags Age of first use: 31 Date of Last Use: 09/21/18 Cocaine Route: Inhalation Frequency: Daily Amount used: $20 Age of first use: 31 Date of Last Use: 09/21/18 Admission Physical Exam BHS - Vital Signs Vital Signs: Vital Signs - 24 hr 09/28/18 17:34 Temperature 99.3 F Pulse Rate 85 Respiratory 18 Rate Blood Pressure 125/80 - Physical General Appearance: Yes: No Apparent Distress HEENTM: Yes: EOMI (jerking movement of eyes on (L) lateral gaze), Hearing grossly Normal, FORREST (Pupils = 4 mm) Respiratory: Yes: Lungs Clear, Normal Breath Sounds, No Respiratory Distress Neck: Yes: No masses,lesions,Nodules, Supple Breast: Yes: Breast Exam Deferred Cardiology: Yes: Regular Rhythm, Regular Rate, S1, S2 Abdominal: Yes: Normal Bowel Sounds, Non Tender, Flat, Soft Genitourinary: Yes: Within Normal Limits Back: Yes: Normal Inspection Musculoskeletal: Yes: full range of Motion, Gait Steady Extremities: Yes: Normal Capillary Refill, Normal Range of Motion, Non-Tender, Tremors (Mild tremors w/ hand extension) Neurological: Yes: professor of law II-XII NML intact (Jerking movement of eyes on (L) lateral gaze), Fully Oriented, Alert, Motor Strength 5/5, Normal Mood/Affect, Normal Response Integumentary: Yes: Normal Color, Dry (Very dry skin), Warm, Track Kahn ( Antecubital track kahn w/o erythema or open lesions.) - Diagnostic (1) Opioid dependence in remission Current Visit: Yes Status: Acute (2) Cocaine dependence in remission Current Visit: Yes Status: Acute (3) Nicotine dependence, uncomplicated Current Visit: Yes Status: Acute Cleared for Admission [facility] - Detox or Rehab Claeared for Rehab Admission: Yes [facility] Breath Alcohol Content Breath Alcohol Content: 0 Urine Drug Screen - Results Drug Screen Negative: No Urine Drug Screen Results: BZO-Benzodiazepines, MTD-Methadone Inpatient Rehab Admission - Initial Determination Are CD services needed?: Yes Free of communicable disease: Yes Not in need of hospitalization: Yes - Rehab Admission Criteria Previous failed treatment: Yes Poor recovery environment: Yes Comorbidities: Yes Lacks judgement: No Patient is meeting Inpatient Rehab admission criteria:: Yes"
[2018-09-28] MEDS ORDERED: hydrOXYzine PAMOATE 50 MG CAPSULE (FP) PO PRN (22:30)
[2018-09-28] MEDS ORDERED: IBUPROFEN 400 MG TABLET (FP) PO PRN (22:30)
[2018-09-28] MEDS ORDERED: MAGNESIUM HYDROX 2400MG/30ML ORAL SUSPENSION 30 ML CUP PO PRN (22:30)
[2018-09-28] MEDS ORDERED: MENTHOL/PHENOL 1 EACH UD MM PRN (22:30)
[2018-09-28] MEDS ORDERED: LOPERAMIDE HCL 2 MG CAPSULE PO PRN (22:30)
[2018-09-28] MEDS ORDERED: NICOTINE POLACRILEX 2 MG GUM BC PRN (22:30)
[2018-09-28] MEDS ORDERED: ACETAMINOPHEN 325 MG TABLET (FP) PO PRN (22:30)
[2018-09-28] MEDS ORDERED: MAG HYDROX/AL HYDROX/SIMETH 30 ML UNIT-DOSE CUP PO PRN (22:30)
[2018-09-28] MEDS ORDERED: MAGNESIUM CITRATE 300 ML BOTTLE PO PRN (22:30)
[2018-09-28] MEDS ORDERED: COLLOIDAL OATMEAL 1 BAR EACH TP PRN (22:33)
[2018-09-29 07:21] VITALS: BP 129/69; PULSE 66; TEMP 98.5
[2018-09-29] MEDS ORDERED: PRENATAL VITAMINS W/ FOLIC ACID TABLET (FP) PO SCH (10:00)
[2018-09-29] MEDS ORDERED: NICOTINE 14 MG/24 HOURS TOPICAL PATCH TD SCH (10:00)
[2018-09-29] MEDS ORDERED: THIAMINE HCL 100 MG TABLET (FP) PO SCH (22:00)
--- NOTE | 2018-10-01 23:55 | EKG ---
Test Reason : Blood Pressure : / mmHG Vent. Rate : 064 BPM Atrial Rate : 064 BPM P-R Int : 158 ms QRS Dur : 112 ms QT Int : 402 ms P-R-T Axes : 061 032 033 degrees QTc Int : 414 ms NORMAL SINUS RHYTHM MODERATE VOLTAGE CRITERIA FOR LVH, MAY BE NORMAL VARIANT BORDERLINE ECG WHEN COMPARED WITH ECG OF 20-APR-2018 14:16, VENT. RATE HAS DECREASED BY 59 BPM Confirmed by SANDY MARSHALL, ELOY ([id number]) on 10/01/2018 11:54:44 PM Referred By: Confirmed By:ELOY DELGADO MD
== END 2018-09-29 09:00 | disposition left against medical advice (07) | DRG 770 ==
LOC: YASAS 16:54 → Y5N 18:32
PROVIDERS: ADMIT Psychiatry & Neurology Psychiatry; ATTEND Psychiatry & Neurology Psychiatry
PROC: HZ42ZZZ Group Counseling for Substance Abuse Treatment, Cognitive-Behavioral (ICD-10-PCS; principal; 2018-09-28)
DX: F11.20 Opioid dependence, uncomplicated (principal); F14.20 Cocaine dependence, uncomplicated; F17.210 Nicotine dependence, cigarettes, uncomplicated; Z59.0 Homelessness
CPT/HCPCS: 93005; 93010

== ENCOUNTER 2018-12-25 11:44 | Inpatient (IN) | payer OTHER ==
[2018-12-25 12:14] VITALS: BMI 23.7
--- NOTE | 2018-12-25 13:33 | HP ---
COWS - Scale Resting Pulse: 0= OK 80 or Below Sweatin=Flushed/Facial Moisture Restless Observation: 0= Sits Still Pupil Size: 0= Normal to Room Light Bone or Joint Aches: 4=Acute Joint/Muscle Pain Runny Nose/ Eye Tearin= Constantly Teary/Runny GI Upset > 30mins: 2= Nausea/Diarrhea Tremor Observation: 0= None Yawning Observation: 0= None Anxiety or Irritability: 0= None Goose Flesh Skin: 0=Smooth Skin COWS Score: 12 CIWA Score Nausea/Vomitin Muscle Tremors: None Anxiety: 4-Mod. Anxious/Guarded Agitation: 0-Normal Activity Paroxysmal Sweats: 3 Orientation: 0-Oriented Tacttile Disturbances: 0-None Auditory Disturbances: 0-None Visual Disturbances: 0-None Headache: 0-None Present CIWA-Ar Total Score: 10 - Admission Criteria OASAS Guidelines: Admission for Medically Managed Detox: Requires at least one of the followin. CIWA greater than 12 2. Seizures within the past 24 hours 3. Delirium tremens within the past 24 hours 4. Hallucinations within the past 24 hours 5. Acute intervention needed for co occurring medical disorder 6. Acute intervention needed for co occurring psychiatric disorder 7. Severe withdrawal that cannot be handled at a lower level of care (continued vomiting, continued diarrhea, abnormal vital signs) requiring intravenous medication and/or fluids 8. Admission ROS [facility] Allergies/Adverse Reactions: Allergies Allergy/AdvReac Type Severity Reaction Status Date / Time No Known Allergies Allergy Verified 09/28/18 18:11 History of Present Illness: patient here requesting detox from etoh use , reports 2 pints/day x 2 years , reports tremors if not drinking, vomiting , denies w/d seizures , denies blackouts , + falls while intoxicated most recently 2 years ago denies injuries to self . latest use yesterday 8 p.m. heroin use ; 10 bags/day IVDU in [place] x 3 years , needles from the needle exchange , denies sharing , denies re-using , denies abscess, denies OD , most recently yesterday 8 pm , current symptoms as above cocaine use : 1 gr/day via inhalation , denies IVDU x 3 years cannabis : since teens denies other illicits tobacco : 1/2 ppd since teens Patient is very irritable and jensen with answering questions , " is this going to be long, I am sick, I don't remember " when asked about previous tx episodes and PMHX / [place] etc PMhx : borderline DM PShx : denies Psych : denies Meds - denies Shx : lives w/ sister Exam Limitations: Clinical Condition - Ebola screening Have you traveled outside of the country in the last 21 days: No Have you had contact with anyone from an Ebola affected area: No Have you been sick,other than usual withdrawal symptoms: No Do you have a fever: No - Review of Systems Constitutional: See HPI, Loss of Appetite EENT: reports: See HPI, Other (denies vision changes , denies dysphagia) Respiratory: reports: No Symptoms reported Cardiac: reports: No Symptoms Reported GI: reports: See HPI : reports: No Symptoms Reported Musculoskeletal: reports: No Symptoms Reported Integumentary: reports: Other (IVDU) Neuro: reports: No Symptoms reported Endocrine: reports: No Symptoms Reported Psychiatric: reports: Orientated x3, Agitated, Anxious Patient History - Patient Medical History Hx Anemia: No Hx Asthma: No Hx Chronic Obstructive Pulmonary Disease (COPD): No Hx Cancer: No Hx Cardiac Disorders: No Hx Congestive Heart Failure: No Hx Hypertension: No Hx Hypercholesterolemia: No Hx Pacemaker: No HX Cerebrovascular Accident: No Hx Seizures: No Hx Dementia: No Hx Diabetes: No Hx Gastrointestinal Disorders: No Hx Liver Disease: No Hx Genitourinary Disorders: No Hx Sexually Transmitted Disorders: No Hx Renal Disease (ESRD): No Hx Thyroid Disease: No Hx Human Immunodeficiency Virus (HIV): No (LAST NEGATIVE 2014) Hx Hepatitis C: No Hx Depression: No (BUT WANTS TO SEE PSYCH) Hx Suicide Attempt: No (DENIES S/I) Hx Bipolar Disorder: No Hx Schizophrenia: No - Patient Surgical History Past Surgical History: No Hx Neurologic Surgery: No Hx Cataract Extraction: No Hx Cardiac Surgery: No Hx Lung Surgery: No Hx Breast Surgery: No Hx Breast Biopsy: No Hx Abdominal Surgery: No Hx Appendectomy: No Hx Cholecystectomy: No Hx Genitourinary Surgery: No Hx Section: No Hx Orthopedic Surgery: No Anesthesia Reaction: No - PPD History Date: 04/22/18 Results: 0 mm - Smoking Cessation Smoking history: Current every day smoker Have you smoked in the past 12 months: Yes Aproximately how many cigarettes per day: 10 Cigars Per Day: 20 Hx Chewing Tobacco Use: No Initiated information on smoking cessation: No Family Disease History - Family Disease History Family History: Denies Admission Physical Exam S - Vital Signs Vital Signs: Vital Signs - 24 hr 12/25/18 12:10 Temperature 96.8 F L Pulse Rate 80 Respiratory 17 Rate Blood Pressure 148/94 - Physical General Appearance: Yes: Moderate Distress, Irritable, Sweating, Anxious HEENTM: Yes: EOMI, Hearing grossly Normal, Normocephalic, Normal Voice Respiratory: Yes: Chest Non-Tender, Lungs Clear, Normal Breath Sounds Neck: Yes: No masses,lesions,Nodules, Trachea in good position Cardiology: Yes: Regular Rhythm, Regular Rate, S1, S2 Abdominal: Yes: Normal Bowel Sounds, Non Tender, Soft Genitourinary: Yes: Within Normal Limits Back: Yes: Normal Inspection Musculoskeletal: Yes: Gait Steady Extremities: Yes: Non-Tender Neurological: Yes: Motor Strength 5/5 Integumentary: Yes: Track Teixeira - Diagnostic (1) Cocaine dependence, uncomplicated Current Visit: No Status: Chronic (2) Nicotine dependence Current Visit: No Status: Chronic Qualifiers: Nicotine product type: cigarettes Substance use status: in withdrawal Qualified Code(s): F17.213 - Nicotine dependence, cigarettes, with withdrawal (3) Opioid dependence with withdrawal Current Visit: No Status: Acute BHS Breath Alcohol Content Breath Alcohol Content: 0 Urine Drug Screen - Results Drug Screen Negative: No Urine Drug Screen Results: LYDIA-Cocaine, OPI-Opiates, FEN-Fentanyl Inpatient Rehab Admission - Rehab Decision to Admit Inpatient rehab admission?: No
[2018-12-25] MEDS ORDERED: ACETAMINOPHEN 325 MG TABLET (FP) PO PRN (13:39)
[2018-12-25] MEDS ORDERED: MAG HYDROX/AL HYDROX/SIMETH 30 ML UNIT-DOSE CUP PO PRN (13:39)
[2018-12-25] MEDS ORDERED: MAGNESIUM HYDROX 2400MG/30ML ORAL SUSPENSION 30 ML CUP PO PRN (13:39)
[2018-12-25] MEDS ORDERED: IBUPROFEN 400 MG TABLET (FP) PO PRN (13:39)
[2018-12-25] MEDS ORDERED: MENTHOL/PHENOL 1 EACH UD MM PRN (13:39)
[2018-12-25] MEDS ORDERED: MAGNESIUM CITRATE 300 ML BOTTLE PO PRN (13:39)
[2018-12-25] MEDS ORDERED: NICOTINE POLACRILEX 2 MG GUM BC PRN (13:45)
[2018-12-25] MEDS ORDERED: METHADONE HCL 10 MG TABLET (FOR DETOX USE ONLY) PO ONE ×2 (17:45→23:00)
[2018-12-25] MEDS: chlordiazePOXIDE HCL 25 MG CAPSULE PO SCH ×2 (18:14→23:29)
[2018-12-25] MEDS: INSULIN SLIDING SCALE (NOVOLOG) 1 VIAL SQ SCH (18:21)
[2018-12-25] MEDS ORDERED: MELATONIN 5 MG TABLETS PO PRN (22:00)
[2018-12-25] MEDS: THIAMINE HCL 100 MG TABLET (FP) PO SCH (23:29)
[2018-12-26] MEDS: chlordiazePOXIDE HCL 25 MG CAPSULE PO PRN (07:20)
[2018-12-26] MEDS: chlordiazePOXIDE HCL 25 MG CAPSULE PO SCH ×4 (07:36→22:24)
[2018-12-26] MEDS: INSULIN SLIDING SCALE (NOVOLOG) 1 VIAL SQ SCH ×2 (07:36→17:28)
[2018-12-26] MEDS ORDERED: METHADONE HCL 10 MG TABLET (FOR DETOX USE ONLY) PO SCH (10:00)
--- NOTE | 2018-12-26 10:02 | PN ---
[facility] CIWA - CIWA Score Nausea/Vomitin-Mild Nausea/No Vomiting Muscle Tremors: 3 Anxiety: 4-Mod. Anxious/Guarded Agitation: 3 Paroxysmal Sweats: 1-Minimal Palms Moist Orientation: 1-Uncertain about Date Tacttile Disturbances: 0-None Auditory Disturbances: 0-None Visual Disturbances: 0-None Headache: 1-Very Mild CIWA-Ar Total Score: 14 BHS COWS - Scale Resting Pulse: 0= [place] 80 or Below Sweatin= Chills/Flushing Restless Observation: 0= Sits Still Pupil Size: 0= Normal to Room Light Bone or Joint Aches: 2= Severe Diffuse Aches Runny Nose/ Eye Tearin= Nasal Congestion GI Upset > 30mins: 2= Nausea/Diarrhea Tremor Observation of Outstretched Hands: 2= Slight Tremor Visible Yawning Observation: 1= 1-2x During Session Anxiety or Irritability: 1=Feels Anxious/Irritable Goose Flesh Skin: 0=Smooth Skin COWS Score: 10 [facility] Progress Note (SOAP) Subjective: body aches joints pain tremor sweating anxiety Objective: 12/26/18 10:01 Vital Signs Temperature 97.2 F L 12/26/18 09:58 Pulse Rate 70 12/26/18 09:58 Respiratory Rate 18 12/26/18 09:58 Blood Pressure 125/69 12/26/18 09:58 O2 Sat by Pulse Oximetry (%) Laboratory Last Values POC Glucometer 73 UNITS (80-120) 12/25/18 18:17 lab pending Assessment: 12/26/18 10:02 alcohol and opiate withdrawal sx Plan: continue detox
[2018-12-26 10:18] LABS: ALBUMIN 3.3 g/dl (3.4-5.0); ALK PHOS 81 U/L (45-117); ANION GAP 4 MMOL/L (8-16); BILIRUBIN,TOTAL 0.2 mg/dL (0.2-1); BLOOD UREA NITROGEN 7 mg/dL (7-18); CALCIUM 8.9 mg/dL (8.5-10.1); CHLORIDE 106 mmol/L (98-107); CO2 30 mmol/L (21-32); CREATININE 0.7 mg/dL (0.55-1.3); GLUCOSE,RANDOM 81 mg/dL (74-106); POTASSIUM 4.1 mmol/L (3.5-5.1); SGOT/AST 13 U/L (15-37); SGPT/ALT 15 U/L (13-61); SODIUM 140 mmol/L (136-145)
[2018-12-26 10:39] LABS: HEMATOCRIT 33.3 % (35.4-49); MCH 28.1 pg (25.7-33.7); MEAN CELL VOLUME 85.1 fl (80-96); MEAN PLT VOLUME 9.6 fl (7.5-11.1); PLATELET COUNT 256 K/MM3 (134-434); RBC 3.91 M/mm3 (4.00-5.60); RDW 17.1 % (11.9-15.9)
[2018-12-26] MEDS: PRENATAL VITAMINS W/ FOLIC ACID TABLET (FP) PO SCH (11:56)
[2018-12-26] MEDS: THIAMINE HCL 100 MG TABLET (FP) PO SCH (22:24)
[2018-12-26] MEDS ORDERED: TRIMETHOBENZAMIDE HCL 200MG/2ML INJ IM PRN (22:48)
[2018-12-26] MEDS ORDERED: METHADONE HCL 10 MG/1 ML (20ML VIAL) IM ONE (22:49)
--- NOTE | 2018-12-26 23:11 | PN ---
[facility] Progress Note Note: ASKED TO SEE PATIENT FOR C/O N/V AND WORSENING BODY ACHES. UPON ARRIVAL CLIENT WAS SEEN LYING ON UNIT FLOOR IN THE HALLWAY. HE STATES HIS BODY HURTS AND HE FEELS BETTER WHEN LYING ON THE FLOOR. CLIENT WAS EXPLAINED THAT HE COULD NOT REST ON THE FLOOR AND NEEDED TO GO TO HIS ROOM FOR FURTHER EVAL. CLIENT WAS ABLE TO GET UP OFF THE FLOOR WITH OUT ASSISTANCE AND AMBULATED TO HIS ROOM WITH OUT DIFFICULTY. DENIES C.P., SOB Vital Signs Temperature 98.4 F 12/26/18 22:43 Pulse Rate 59 L 12/26/18 22:43 Respiratory Rate 18 12/26/18 22:43 Blood Pressure 130/63 12/26/18 22:43 O2 Sat by Pulse Oximetry (%) PER NURSING STAFF CLIENT HAS REFUSED ALL METHADONE AND LIBRIUM MEDS. A/O X3 IRRITABLE AND DISMISSIVE TO PROVIDER REFUSED TO BE ASSESSED. D/W CLIENT THE IMPORTANCE OF TAKING MEDS ORDERED TO ALLEVIATE SX'S. CLIENT VERBALIZED UNDERSTANDING AND AGREED TO TAKE HIS MEDS. A- WITHDRAWAL SXS P- TIGAN 200 MG IM NOW METHADONE 10 MG IM NOW INCREASE PO FLUIDS LIBRIUM WHEN N/V CEASES CONT TO MONITOR CLINICALLY
[2018-12-27] MEDS: chlordiazePOXIDE HCL 25 MG CAPSULE PO PRN (00:47)
[2018-12-27] MEDS: chlordiazePOXIDE HCL 25 MG CAPSULE PO SCH ×2 (05:25→11:01)
[2018-12-27] MEDS ORDERED: METHADONE HCL 5 MG TABLET (FOR DETOX USE ONLY) PO SCH (10:00)
--- NOTE | 2018-12-27 10:38 | PN ---
[facility] CIWA - CIWA Score Nausea/Vomitin-Mild Nausea/No Vomiting Muscle Tremors: 3 Anxiety: 2 Agitation: 2 Paroxysmal Sweats: 1-Minimal Palms Moist Orientation: 1-Uncertain about Date Tacttile Disturbances: 0-None Auditory Disturbances: 0-None Visual Disturbances: 0-None Headache: 2-Mild CIWA-Ar Total Score: 12 [facility] COWS - Scale Resting Pulse: 0= [place] 80 or Below Sweatin= Chills/Flushing Restless Observation: 0= Sits Still Pupil Size: 0= Normal to Room Light Bone or Joint Aches: 1= Mild Discomfort Runny Nose/ Eye Tearin= Nasal Congestion GI Upset > 30mins: 1= Stomach Cramp Tremor Observation of Outstretched Hands: 1= Tremor Ashley, Not Seen Yawning Observation: 1= 1-2x During Session Anxiety or Irritability: 1=Feels Anxious/Irritable Goose Flesh Skin: 0=Smooth Skin COWS Score: 7 [facility] Progress Note (SOAP) Subjective: tremor sweating body aches trouble sleep at night Objective: 12/27/18 10:40 Vital Signs Temperature 99.9 F H 12/27/18 09:50 Pulse Rate 48 L 12/27/18 09:50 Respiratory Rate 18 12/27/18 09:50 Blood Pressure 153/82 12/27/18 09:50 O2 Sat by Pulse Oximetry (%) 12/27/18 10:43 Laboratory Last Values WBC 5.0 K/mm3 (4.0-10.0) 12/26/18 06:00 RBC 3.91 M/mm3 (4.00-5.60) L 12/26/18 06:00 Hgb 11.0 GM/dL (11.7-16.9) L 12/26/18 06:00 Hct 33.3 % (35.4-49) L D 12/26/18 06:00 MCV 85.1 fl (80-96) 12/26/18 06:00 MCH 28.1 pg (25.7-33.7) 12/26/18 06:00 MCHC 33.0 g/dl (32.0-35.9) 12/26/18 06:00 RDW 17.1 % (11.9-15.9) H 12/26/18 06:00 Plt Count 256 K/MM3 (134-434) 12/26/18 06:00 MPV 9.6 fl (7.5-11.1) 12/26/18 06:00 Sodium 140 mmol/L (136-145) 12/26/18 06:00 Potassium 4.1 mmol/L (3.5-5.1) 12/26/18 06:00 Chloride 106 mmol/L (98-107) 12/26/18 06:00 Carbon Dioxide 30 mmol/L (21-32) 12/26/18 06:00 Anion Gap 4 MMOL/L (8-16) L 12/26/18 06:00 BUN 7 mg/dL (7-18) 12/26/18 06:00 Creatinine 0.7 mg/dL (0.55-1.3) 12/26/18 06:00 Creat Clearance w eGFR > 60 (>60) 12/26/18 06:00 POC Glucometer 73 UNITS (80-120) 12/25/18 18:17 Random Glucose 81 mg/dL (74-106) 12/26/18 06:00 Calcium 8.9 mg/dL (8.5-10.1) 12/26/18 06:00 Total Bilirubin 0.2 mg/dL (0.2-1) 12/26/18 06:00 AST 13 U/L (15-37) L 12/26/18 06:00 ALT 15 U/L (13-61) 12/26/18 06:00 Alkaline Phosphatase 81 U/L (45-117) 12/26/18 06:00 Total Protein 7.0 g/dl (6.4-8.2) 12/26/18 06:00 Albumin 3.3 g/dl (3.4-5.0) L 12/26/18 06:00 RPR Titer Nonreactive (NONREACTIVE) 12/26/18 06:00 lab noted bp elevation begin lisinopril 5 mg po daily Assessment: 12/27/18 10:43 withdrawal sx Plan: continue detox
[2018-12-27] MEDS: PRENATAL VITAMINS W/ FOLIC ACID TABLET (FP) PO SCH (10:41)
[2018-12-27] MEDS: LISINOPRIL 5 MG TABLET (FP) PO SCH (14:03)
[2018-12-27] MEDS: chlordiazePOXIDE 5 MG CAPSULE PO SCH ×2 (17:22→22:34)
[2018-12-27] MEDS: THIAMINE HCL 100 MG TABLET (FP) PO SCH (22:34)
[2018-12-28] MEDS: chlordiazePOXIDE 5 MG CAPSULE PO SCH ×2 (06:40→10:15)
[2018-12-28] MEDS ORDERED: METHADONE HCL 10 MG TABLET (FOR DETOX USE ONLY) PO SCH (10:00)
[2018-12-28] MEDS: LISINOPRIL 5 MG TABLET (FP) PO SCH (10:14)
[2018-12-28] MEDS: PRENATAL VITAMINS W/ FOLIC ACID TABLET (FP) PO SCH (10:14)
--- NOTE | 2018-12-28 17:35 | PN ---
S Progress Note (SOAP) Subjective: Vomiting, Stomach Cramping, Sweating, Body Aches, Diarrhea. Objective: PATIENT A & O X 2 (UNCERTAIN ABOUT CURRENT DAY / DATE). PATIENT OBSERVED AMBULATING ON UNIT. IN NO ACUTE DISTRESS. 12/28/18 17:33 Vital Signs Temperature 98.8 F 12/28/18 13:40 Pulse Rate 53 L 12/28/18 13:40 Respiratory Rate 20 12/28/18 13:40 Blood Pressure 122/63 12/28/18 13:40 O2 Sat by Pulse Oximetry (%) Laboratory Tests 12/25/18 12/26/18 12/26/18 18:17 06:00 06:00 WBC 5.0 RBC 3.91 L Hgb 11.0 L Hct 33.3 L D MCV 85.1 MCH 28.1 MCHC 33.0 RDW 17.1 H Plt Count 256 MPV 9.6 Sodium 140 Potassium 4.1 Chloride 106 Carbon Dioxide 30 Anion Gap 4 L BUN 7 Creatinine 0.7 Creat Clearance w eGFR > 60 POC Glucometer 73 Random Glucose 81 Calcium 8.9 Total Bilirubin 0.2 AST 13 L ALT 15 Alkaline Phosphatase 81 Total Protein 7.0 Albumin 3.3 L RPR Titer 12/26/18 12/27/18 12/28/18 06:00 16:33 16:37 WBC RBC Hgb Hct MCV MCH MCHC RDW Plt Count MPV Sodium Potassium Chloride Carbon Dioxide Anion Gap BUN Creatinine Creat Clearance w eGFR POC Glucometer 89 118 Random Glucose Calcium Total Bilirubin AST ALT Alkaline Phosphatase Total Protein Albumin RPR Titer Nonreactive LABS NOTED. Assessment: 12/28/18 17:33 WITHDRAWAL SYMPTOMS. Plan: CONTINUE DETOX. INCREASE DAILY PO FLUID INTAKE. GLUCERNA BID FOR POOR APPETITE. PRN TIGAN IM FOR VOMITING. PRN IMMODIUM PO FOR DIARRHEA.
[2018-12-28] MEDS: chlordiazePOXIDE HCL 10 MG CAPSULE PO SCH ×2 (18:01→22:27)
[2018-12-28] MEDS: THIAMINE HCL 100 MG TABLET (FP) PO SCH (22:27)
[2018-12-29] MEDS ORDERED: METHADONE HCL 5 MG TABLET (FOR DETOX USE ONLY) PO SCH (06:00)
[2018-12-29] MEDS: chlordiazePOXIDE HCL 10 MG CAPSULE PO SCH (06:05)
[2018-12-29 09:33] VITALS: BP 139/84; PULSE 59; TEMP 98.6
--- NOTE | 2018-12-29 19:49 | DS ---
[facility] Detox Discharge Summary Admission Date: 12/25/18 Discharge Date: 12/29/18 - History Present History: Cocaine Dependence, Opioid Dependence Additional Comments: PATIENT INITIALLY INTENT ON GOING TO [facility] ([place], [place]) FOR AFTERCARE. HOWEVER, JUST PRIOR TO DISCHARGE FROM DETOX UNIT, PATIENT CHANGED HIS MIND AND ELECTED TO LEAVE AND WOULD NOT STATE DESIRED ALTERNATE PLAN. PATIENT ADVISED TO CONSIDER LOCAL 12-STEP / NA OUTPATIENT SUPPORT GROUP FOR AFTERCARE. PATIENT VERBALIZED UNDERSTANDING OF RECOMMENDATION. PATIENT WAS DISCHARGED FROM DETOX UNIT IN STABLE MEDICAL CONDITION. Pertinent Past History: Nicotine Dependence. - Physical Exam Results Vital Signs: Vital Signs Temperature 98.6 F 12/29/18 09:32 Pulse Rate 59 L 12/29/18 09:32 Respiratory Rate 18 12/29/18 09:32 Blood Pressure 139/84 12/29/18 09:32 O2 Sat by Pulse Oximetry (%) Pertinent Admission Physical Exam Findings: WITHDRAWAL SYMPTOMS. Laboratory Tests 12/25/18 12/26/18 12/26/18 18:17 06:00 06:00 WBC 5.0 RBC 3.91 L Hgb 11.0 L Hct 33.3 L D MCV 85.1 MCH 28.1 MCHC 33.0 RDW 17.1 H Plt Count 256 MPV 9.6 Sodium 140 Potassium 4.1 Chloride 106 Carbon Dioxide 30 Anion Gap 4 L BUN 7 Creatinine 0.7 Creat Clearance w eGFR > 60 POC Glucometer 73 Random Glucose 81 Calcium 8.9 Total Bilirubin 0.2 AST 13 L ALT 15 Alkaline Phosphatase 81 Total Protein 7.0 Albumin 3.3 L RPR Titer 12/26/18 12/27/18 12/28/18 06:00 16:33 16:37 WBC RBC Hgb Hct MCV MCH MCHC RDW Plt Count MPV Sodium Potassium Chloride Carbon Dioxide Anion Gap BUN Creatinine Creat Clearance w eGFR POC Glucometer 89 118 Random Glucose Calcium Total Bilirubin AST ALT Alkaline Phosphatase Total Protein Albumin RPR Titer Nonreactive LABS NOTED. - Treatment Hospital Course: Detox Protocol Followed, Detoxed Safely, Responded well, Discharged Condition Good Patient has Accepted a Rehab Referral to: PT. DECLINED, ADVISED TO CONSIDER LOCAL 12-STEP/NA OUTPATIENT PROGRAM. - Medication Discharge Medications: Ambulatory Orders NK [No Known Home Medication] 07/10/14 - Diagnosis (1) Nicotine dependence, uncomplicated Status: Acute Qualifiers: Nicotine product type: cigarettes Qualified Code(s): F17.210 - Nicotine dependence, cigarettes, uncomplicated (2) Opioid dependence with withdrawal Status: Acute (3) Cocaine dependence, uncomplicated Status: Chronic - AMA Did Patient Leave Against Medical Advice: No
== END 2018-12-29 09:30 | disposition home or self-care (01) | DRG 773 ==
LOC: YASAS 11:44 → Y3N 17:15
PROVIDERS: ADMIT Surgery; ATTEND Surgery
PROC: HZ2ZZZZ Detoxification Services for Substance Abuse Treatment (ICD-10-PCS; principal; 2018-12-25)
DX: F11.23 Opioid dependence with withdrawal (principal); F10.230 Alcohol dependence with withdrawal, uncomplicated; F14.20 Cocaine dependence, uncomplicated; F17.210 Nicotine dependence, cigarettes, uncomplicated; R73.03 Prediabetes
CPT/HCPCS: 36415; 80053; 82962; 85027; 86593

== ENCOUNTER 2019-05-04 11:53 | Inpatient (IN) | payer OTHER ==
[2019-05-04 16:01] VITALS: BMI 24.6
--- NOTE | 2019-05-04 17:06 | HP ---
COWS - Scale Resting Pulse: 0= [place] 80 or Below Sweatin= Chills/Flushing Restless Observation: 1= Difficult to Sit Still Pupil Size: 1= Pupils >than Normal Bone or Joint Aches: 2= Severe Diffuse Aches Runny Nose/ Eye Tearin= Runny Nose/Eyes GI Upset > 30mins: 3= Vomiting/Diarrhea Tremor Observation: 2= Slight Tremor Visible Yawning Observation: 2= >3x During Session Anxiety or Irritability: 2=Irritable/Anxious Goose Flesh Skin: 0=Smooth Skin COWS Score: 16 CIWA Score - Admission Criteria OASAS Guidelines: Admission for Medically Managed Detox: Requires at least one of the followin. CIWA greater than 12 2. Seizures within the past 24 hours 3. Delirium tremens within the past 24 hours 4. Hallucinations within the past 24 hours 5. Acute intervention needed for co occurring medical disorder 6. Acute intervention needed for co occurring psychiatric disorder 7. Severe withdrawal that cannot be handled at a lower level of care (continued vomiting, continued diarrhea, abnormal vital signs) requiring intravenous medication and/or fluids 8. Admission ROS [facility] Chief Complaint: i need help to stop using heroin,coaine Allergies/Adverse Reactions: Allergies Allergy/AdvReac Type Severity Reaction Status Date / Time No Known Allergies Allergy Verified 05/04/19 15:57 History of Present Illness: this 48 years old male with heroin,cocaine dependence seeking detox,withdrawal symptom,last detox [facility] 12/25/18 to 12/29/18 multiple admissions in detox nicotine 1/2 pack,does not want nicotine replacement weight loss longest period sobriety 10 years plan for rehab - Ebola screening Have you traveled outside of the country in the last 21 days: No (N) Have you had contact with anyone from an Ebola affected area: No Do you have a fever: No - Review of Systems Constitutional: Chills, Loss of Appetite, Malaise, Night Sweats, Changes in sleep, Weakness, Unintentional Wgt. Loss EENT: reports: Tearing, Nose Congestion Respiratory: reports: No Symptoms reported Cardiac: reports: No Symptoms Reported GI: reports: Diarrhea, Nausea, Vomiting, Abdominal cramping : reports: No Symptoms Reported Musculoskeletal: reports: Back Pain, Joint Pain, Muscle Pain Integumentary: reports: Dryness Neuro: reports: Headache, Tremors Endocrine: reports: No Symptoms Reported Hematology: reports: No Symptoms Reported Psychiatric: reports: No Sypmtoms Reported, Judgement Intact, Mood/Affect Appropiate, Orientated x3, other Other Systems: Reviewed and Negative Patient History - Patient Medical History Hx Anemia: No Hx Asthma: No Hx Chronic Obstructive Pulmonary Disease (COPD): No Hx Cancer: No Hx Cardiac Disorders: No Hx Congestive Heart Failure: No Hx Hypertension: No Hx Hypercholesterolemia: No Hx Pacemaker: No HX Cerebrovascular Accident: No Hx Seizures: No Hx Dementia: No Hx Diabetes: No Hx Gastrointestinal Disorders: No Hx Liver Disease: No Hx Genitourinary Disorders: No Hx Sexually Transmitted Disorders: No Hx Renal Disease (ESRD): No Hx Thyroid Disease: No Hx Human Immunodeficiency Virus (HIV): No (LAST NEGATIVE 2014) Hx Hepatitis C: No Hx Depression: No (BUT WANTS TO SEE PSYCH) Hx Suicide Attempt: No (DENIES S/I) Hx Bipolar Disorder: No Hx Schizophrenia: No Other Medical History: no suicidal,no homicidal - Patient Surgical History Past Surgical History: No Hx Neurologic Surgery: No Hx Cataract Extraction: No Hx Cardiac Surgery: No Hx Lung Surgery: No Hx Breast Surgery: No Hx Breast Biopsy: No Hx Abdominal Surgery: No Hx Appendectomy: No Hx Cholecystectomy: No Hx Genitourinary Surgery: No Hx Section: No Hx Orthopedic Surgery: No Anesthesia Reaction: No - PPD History Previous Implant?: Yes Documented Results: Negative w/proof Implanted On Prior [facility] Admission?: Yes Date: 12/27/18 Results: 0 mm PPD to be Administered?: No - Smoking Cessation Smoking history: Current every day smoker Have you smoked in the past 12 months: Yes Aproximately how many cigarettes per day: 10 Cigars Per Day: 0 Hx Chewing Tobacco Use: No Initiated information on smoking cessation: Yes 'Breaking Loose' booklet given: 05/04/19 - Substance & Tx. History Hx Alcohol Use: No Hx Substance Use: Yes Substance Use Type: Cocaine, Heroin Hx Substance Use Treatment: Yes ([facility] 12/25/18 to 12/29/18) - Substances abused Heroin Substance route: Injection Frequency: Daily Amount used: 10 bags Age of first use: 31 Date of last use: 05/03/19 Cocaine Substance route: Inhalation Frequency: Daily Amount used: 20$ Age of first use: 31 Date of last use: 05/03/19 Family Disease History - Family Disease History Family History: Denies Admission Physical Exam [facility] - Vital Signs Vital Signs: Vital Signs - 24 hr 05/04/19 15:57 Temperature 98.0 F Pulse Rate 76 Respiratory 20 Rate Blood Pressure 146/98 - Physical General Appearance: Yes: Moderate Distress, Tremorous, Irritable, Sweating, Anxious HEENTM: Yes: Normal ENT Inspection, FORREST, Photophobia Respiratory: Yes: Lungs Clear, Normal Breath Sounds, No Respiratory Distress Neck: Yes: Within Normal Limits, Supple, Trachea in good position Breast: Yes: Within Normal Limits Cardiology: Yes: Within Normal Limits, Regular Rhythm, Regular Rate, S1, S2 Abdominal: Yes: Within Normal Limits, Normal Bowel Sounds, Non Tender, Flat, Soft Genitourinary: Yes: Within Normal Limits Back: Yes: Muscle Spasm Musculoskeletal: Yes: full range of Motion, Back pain, Muscle Pain Extremities: Yes: Normal Range of Motion, Tremors Integumentary: Yes: Dry, Track Teixeira Lymphatic: Yes: Within Normal Limits - Diagnostic (1) Opioid dependence with withdrawal Current Visit: No Status: Acute (2) Nicotine dependence, uncomplicated Current Visit: No Status: Acute Qualifiers: Nicotine product type: cigarettes Qualified Code(s): F17.210 - Nicotine dependence, cigarettes, uncomplicated (3) Cocaine dependence, uncomplicated Current Visit: No Status: Chronic (4) Nicotine dependence Current Visit: No Status: Chronic Qualifiers: Nicotine product type: cigarettes Substance use status: in withdrawal Qualified Code(s): F17.213 - Nicotine dependence, cigarettes, with withdrawal (5) IVDU (intravenous drug user) Current Visit: Yes Status: Acute (6) Weight loss Current Visit: Yes Status: Acute Cleared for Admission [facility] - Detox or Rehab [facility] Level of Care: Medically Managed Detox Regimen/Protocol: Methadone Breathalyzer - Breathalyzer Breathalyzer: 0 Urine Drug Screen - Test Device Lot number: [id number] Expiration date: 01/10/21 - Control Is test valid?: Yes - Results Drug screen NEGATIVE: No Urine drug screen results: LYDIA-Cocaine, FEN-Fentanyl, MOP-Opiates, MTD-Methadone , BZO-Benzodiazepines Inpatient Rehab Admission - Rehab Decision to Admit Inpatient rehab admission?: No
[2019-05-04] MEDS ORDERED: cloNIDine HCL 0.1 MG TABLET PO PRN (17:11)
[2019-05-04] MEDS ORDERED: MENTHOL/PHENOL 1 EACH UD MM PRN (17:16)
[2019-05-04] MEDS ORDERED: MAG HYDROX/AL HYDROX/SIMETH 30 ML UNIT-DOSE CUP PO PRN (17:16)
[2019-05-04] MEDS ORDERED: hydrOXYzine PAMOATE 25 MG CAPSULE (FP) PO PRN (17:16)
[2019-05-04] MEDS ORDERED: IBUPROFEN 400 MG TABLET (FP) PO PRN (17:16)
[2019-05-04] MEDS ORDERED: BISMUTH SUBSALICYLATE 524 MG/30 ML UD PO PRN (17:16)
[2019-05-04] MEDS ORDERED: ACETAMINOPHEN 325 MG TABLET (FP) PO PRN ×2 (17:16)
[2019-05-04] MEDS ORDERED: METHOCARBAMOL 500 MG TABLET PO PRN (17:16)
[2019-05-04] MEDS ORDERED: MAGNESIUM CITRATE 300 ML BOTTLE PO PRN (17:16)
[2019-05-04] MEDS ORDERED: MAGNESIUM HYDROX 2400MG/30ML ORAL SUSPENSION 30 ML CUP PO PRN (17:16)
[2019-05-04] MEDS ORDERED: diazePAM 5 MG TABLET PO PRN (17:19)
[2019-05-04] MEDS ORDERED: METHADONE HCL 10 MG TABLET (FOR DETOX USE ONLY) PO ONE ×2 (17:30→23:00)
[2019-05-04] MEDS ORDERED: MELATONIN 5 MG TABLETS PO PRN (22:00)
[2019-05-04] MEDS: THIAMINE HCL 100 MG TABLET (FP) PO SCH (22:52)
[2019-05-05] MEDS ORDERED: PRENATAL VITAMINS W/ FOLIC ACID TABLET (FP) PO SCH (10:00)
[2019-05-05] MEDS ORDERED: METHADONE HCL 10 MG TABLET (FOR DETOX USE ONLY) PO ONE (10:00)
[2019-05-05 10:41] LABS: HEMATOCRIT 36.2 % (35.4-49); HEMOGLOBIN 11.8 GM/dL (11.7-16.9); MCHC 32.5 g/dl (32.0-35.9); MEAN CELL VOLUME 86.2 fl (80-96); MEAN PLT VOLUME 9.4 fl (7.5-11.1); PLATELET COUNT 255 K/MM3 (134-434); RBC 4.21 M/mm3 (4.00-5.60); RDW 17.7 % (11.9-15.9); WHITE BLOOD COUNT 5.3 K/mm3 (4.0-10.0)
[2019-05-05 10:53] LABS: ALBUMIN 3.3 g/dl (3.4-5.0); BILIRUBIN,TOTAL 0.5 mg/dL (0.2-1); BLOOD UREA NITROGEN 11.8 mg/dL (7-18); CALCIUM 8.7 mg/dL (8.5-10.1); CREATININE 0.9 mg/dL (0.55-1.3); POTASSIUM 4.3 mmol/L (3.5-5.1); TOT PROT 6.6 g/dl (6.4-8.2)
--- NOTE | 2019-05-05 11:42 | PN ---
[facility] COWS - Scale Resting Pulse: 1= [place] 81-100 Sweatin= Chills/Flushing Restless Observation: 3= Extraneous Movement Pupil Size: 0= Normal to Room Light Bone or Joint Aches: 2= Severe Diffuse Aches Runny Nose/ Eye Tearin= Runny Nose/Eyes GI Upset > 30mins: 2= Nausea/Diarrhea Tremor Observation of Outstretched Hands: 2= Slight Tremor Visible Yawning Observation: 0= None Anxiety or Irritability: 1=Feels Anxious/Irritable Goose Flesh Skin: 0=Smooth Skin COWS Score: 14 [facility] Progress Note (SOAP) Subjective: Nausea, stomachache, back pain, chills, sweating, interrupted sleep Objective: 05/05/19 11:42 Last Vital Signs Temp Pulse Resp BP Pulse Ox 98.2 F 86 20 128/74 05/05/19 09:35 05/05/19 09:35 05/05/19 09:35 05/05/19 09:35 Laboratory Tests 05/05/19 05/05/19 08:00 08:00 WBC 5.3 RBC 4.21 Hgb 11.8 Hct 36.2 MCV 86.2 MCH 28.0 MCHC 32.5 RDW 17.7 H Plt Count 255 MPV 9.4 Sodium 140 Potassium 4.3 Chloride 105 Carbon Dioxide 27 Anion Gap 8 BUN 11.8 Creatinine 0.9 Est GFR (CKD-EPI)AfAm 117.47 Est GFR (CKD-EPI)NonAf 101.35 Random Glucose 160 H Calcium 8.7 Total Bilirubin 0.5 AST 15 ALT 18 Alkaline Phosphatase 73 Total Protein 6.6 Albumin 3.3 L Labs reviewed: serum glucose 160mg/dl Assessment: 05/05/19 11:45 Withdrawal symptoms Noted with hyperglycemia Plan: Continue detox Encouraged PO water hydration Hyperglycemia: could be r/t withdrawal, repeat fasting glucose, send HbA1c to rule out DM
[2019-05-05] MEDS: THIAMINE HCL 100 MG TABLET (FP) PO SCH (23:57)
[2019-05-06 09:08] VITALS: BP 131/69; PULSE 80; TEMP 97.3
--- NOTE | 2019-05-06 09:47 | PN ---
S Progress Note Note: pt was admitted in withdrawals pt c/o of withdrawal s/s and aggressive symptomatic management attempted however pt in spite of extensive motivational counseling regarding the risk of relapse, seizure, and or loss of pt chose to sign out AMA.
[2019-05-06] MEDS ORDERED: METHADONE HCL 10 MG TABLET (FOR DETOX USE ONLY) PO ONE (10:00)
--- NOTE | 2019-05-06 10:08 | DS ---
[facility] Detox Discharge Summary Admission Date: 05/04/19 - History Present History: Cocaine Dependence, Opioid Dependence - Physical Exam Results Vital Signs: Vital Signs Temperature 97.3 F L 05/06/19 09:07 Pulse Rate 80 05/06/19 09:07 Respiratory Rate 18 05/06/19 09:07 Blood Pressure 131/69 05/06/19 09:07 O2 Sat by Pulse Oximetry (%) - Medication Discharge Medications: Ambulatory Orders NK [No Known Home Medication] 07/10/14 - Diagnosis (1) IVDU (intravenous drug user) Current Visit: Yes Status: Acute (2) Cocaine dependence in remission Current Visit: Yes Status: Acute (3) Insomnia secondary to depression with anxiety Current Visit: No Status: Acute (4) Nicotine dependence, uncomplicated Current Visit: Yes Status: Chronic Qualifiers: Nicotine product type: cigarettes Qualified Code(s): F17.210 - Nicotine dependence, cigarettes, uncomplicated (5) Opioid dependence with withdrawal Current Visit: Yes Status: Acute (6) Substance induced mood disorder Current Visit: No Status: Acute (7) Substance-induced sleep disorder Current Visit: No Status: Acute (8) Cocaine dependence, uncomplicated Current Visit: Yes Status: Chronic (9) Nicotine dependence Current Visit: Yes Status: Chronic Qualifiers: Nicotine product type: cigarettes Substance use status: in withdrawal Qualified Code(s): F17.213 - Nicotine dependence, cigarettes, with withdrawal - AMA Did Patient Leave Against Medical Advice: Yes (going home; refused aftercare )
[2019-05-07] MEDS ORDERED: METHADONE HCL 10 MG TABLET (FOR DETOX USE ONLY) PO ONE (10:00)
[2019-05-07] MEDS ORDERED: METHADONE (DETOX) 10 MG, METHADONE (DETOX) 5 MG PO ONE (10:00)
[2019-05-08] MEDS ORDERED: METHADONE HCL 5 MG TABLET (FOR DETOX USE ONLY) PO ONE (06:00)
[2019-05-08] MEDS ORDERED: METHADONE HCL 10 MG TABLET (FOR DETOX USE ONLY) PO ONE (10:00)
[2019-05-09] MEDS ORDERED: METHADONE HCL 5 MG TABLET (FOR DETOX USE ONLY) PO ONE (06:00)
== END 2019-05-06 10:15 | disposition left against medical advice (07) | DRG 770 ==
LOC: YASAS 11:53 → Y6N 17:28
PROVIDERS: ADMIT Surgery; ATTEND Surgery
PROC: HZ2ZZZZ Detoxification Services for Substance Abuse Treatment (ICD-10-PCS; principal; 2019-05-04)
DX: F11.23 Opioid dependence with withdrawal (principal); F14.20 Cocaine dependence, uncomplicated; F17.213 Nicotine dependence, cigarettes, with withdrawal; F19.24 Other psychoactive substance dependence with psychoactive substance-induced mood disorder; F19.282 Other psychoactive substance dependence with psychoactive substance-induced sleep disorder; F51.05 Insomnia due to other mental disorder; R73.9 Hyperglycemia, unspecified; R63.4 Abnormal weight loss
CPT/HCPCS: 36415; 80053; 82947; 83036; 85027; 86593

== ENCOUNTER 2019-12-05 18:07 | Inpatient (IN) | payer OTHER ==
[2019-12-05 21:16] VITALS: BMI 22.5
--- NOTE | 2019-12-06 04:54 | PN ---
S CIWA - CIWA Score Nausea/Vomitin-Mild Nausea/No Vomiting Muscle Tremors: 4-Moderate,w/Arms Extend Anxiety: 3 Agitation: 0-Normal Activity Paroxysmal Sweats: 2 Orientation: 2-Disoriented Date<2 days Tacttile Disturbances: 0-None Auditory Disturbances: 0-None Visual Disturbances: 0-None Headache: 3-Moderate CIWA-Ar Total Score: 15 [facility] COWS - Scale Resting Pulse: 0= [place] 80 or Below Sweatin=Flushed/Facial Moisture Restless Observation: 0= Sits Still Pupil Size: 1= Pupils >than Normal Bone or Joint Aches: 4=Acute Joint/Muscle Pain Runny Nose/ Eye Tearin= Nasal Congestion GI Upset > 30mins: 1= Stomach Cramp Tremor Observation of Outstretched Hands: 2= Slight Tremor Visible Yawning Observation: 1= 1-2x During Session Anxiety or Irritability: 2=Irritable/Anxious Goose Flesh Skin: 0=Smooth Skin COWS Score: 14 B[facility] Progress Note (SOAP) Subjective: Opioid dependence in withdrawal Alcohol denendence in withdrawal Cocaine dependence Objective: 12/06/19 04:55 Tremors anxiety restless runny nose Assessment: 12/06/19 04:57 Opioid withdrawal symptoms Alcohol withdrawal symptoms Plan: Admit to detox Methadone/ Librium regimen H and P including medication confirmation to be done in AM by the floor MD/HYDROGEOLOGY PROFESSOR See medication orders
[2019-12-06] MEDS ORDERED: cloNIDine HCL 0.1 MG TABLET PO PRN (05:19)
[2019-12-06] MEDS ORDERED: METHOCARBAMOL 500 MG TABLET PO PRN (05:19)
[2019-12-06] MEDS ORDERED: METHADONE HCL 10 MG TABLET (FOR DETOX USE ONLY) PO ONE (05:19)
[2019-12-06] MEDS ORDERED: MELATONIN 5 MG TABLETS PO PRN (05:19)
[2019-12-06] MEDS ORDERED: MAG HYDROX/AL HYDROX/SIMETH 30 ML UNIT-DOSE CUP PO PRN (05:19)
[2019-12-06] MEDS ORDERED: IBUPROFEN 400 MG TABLET (FP) PO PRN (05:19)
[2019-12-06] MEDS ORDERED: NICOTINE POLACRILEX 2 MG GUM BUC PRN (05:19)
[2019-12-06] MEDS ORDERED: ACETAMINOPHEN 325 MG TABLET (FP) PO PRN ×2 (05:19)
[2019-12-06] MEDS ORDERED: chlordiazePOXIDE HCL 25 MG CAPSULE PO PRN (05:19)
[2019-12-06] MEDS ORDERED: BISMUTH SUBSALICYLATE 524 MG/30 ML UD PO PRN (05:19)
[2019-12-06] MEDS ORDERED: MENTHOL/PHENOL 1 EACH UD MM PRN (05:19)
[2019-12-06] MEDS ORDERED: hydrOXYzine PAMOATE 25 MG CAPSULE (FP) PO PRN (05:19)
[2019-12-06] MEDS ORDERED: MAGNESIUM CITRATE 300 ML BOTTLE PO PRN (05:19)
[2019-12-06] MEDS ORDERED: MAGNESIUM HYDROX 2400MG/30ML ORAL SUSPENSION 30 ML CUP PO PRN (05:19)
[2019-12-06] MEDS: PRENATAL VITAMINS W/ FOLIC ACID TABLET (FP) PO SCH (10:40)
[2019-12-06] MEDS: NICOTINE 14 MG/24 HOURS TOPICAL PATCH TD SCH (10:40)
--- NOTE | 2019-12-06 10:46 | PN ---
S Progress Note Note: Vital Signs Temperature 98.8 F 12/06/19 09:15 Pulse Rate 77 12/06/19 09:15 Respiratory Rate 18 12/06/19 09:15 Blood Pressure 122/64 12/06/19 09:15 O2 Sat by Pulse Oximetry (%) Patient prestns fopr detox, disruptive in the unit, yellewing at staff and very arguementative Reinforced unit relues and importnace of theraputic enviroment d/t patients behavior patient to be placed on behavior contract
--- NOTE | 2019-12-06 12:06 | PN ---
S Progress Note Note: Patient presents for detox, H&P pending. Patient sent to admission for H &P completion
--- NOTE | 2019-12-06 13:41 | EKG ---
Test Reason : Blood Pressure : / mmHG Vent. Rate : 070 BPM Atrial Rate : 070 BPM P-R Int : 136 ms QRS Dur : 102 ms QT Int : 420 ms P-R-T Axes : 066 036 018 degrees QTc Int : 453 ms NORMAL SINUS RHYTHM NONSPECIFIC T WAVE ABNORMALITY ABNORMAL ECG Confirmed by HERNAN PATHAK MD ([id number]) on 12/06/2019 1:41:01 PM Referred By: Confirmed By:HERNAN PATHAK MD
--- NOTE | 2019-12-06 13:49 | HP ---
COWS - Scale Resting Pulse: 0= [place] 80 or Below Sweatin= No chills or Flushing Restless Observation: 0= Sits Still Pupil Size: 0= Normal to Room Light Bone or Joint Aches: 0= None Runny Nose/ Eye Tearin= None GI Upset > 30mins: 0= None Tremor Observation: 2= Slight Tremor Visible Yawning Observation: 0= None Anxiety or Irritability: 2=Irritable/Anxious Goose Flesh Skin: 0=Smooth Skin COWS Score: 4 CIWA Score Nausea/Vomitin-Mild Nausea/No Vomiting Muscle Tremors: 4-Moderate,w/Arms Extend Anxiety: 3 Agitation: 0-Normal Activity Paroxysmal Sweats: 2 Orientation: 2-Disoriented Date<2 days Tacttile Disturbances: 0-None Auditory Disturbances: 0-None Visual Disturbances: 0-None Headache: 3-Moderate CIWA-Ar Total Score: 15 - Admission Criteria OASAS Guidelines: Admission for Medically Managed Detox: Requires at least one of the followin. CIWA greater than 12 2. Seizures within the past 24 hours 3. Delirium tremens within the past 24 hours 4. Hallucinations within the past 24 hours 5. Acute intervention needed for co occurring medical disorder 6. Acute intervention needed for co occurring psychiatric disorder 7. Severe withdrawal that cannot be handled at a lower level of care (continued vomiting, continued diarrhea, abnormal vital signs) requiring intravenous medication and/or fluids 8. Admitting History and Physical - Admission Chief Complaint: detox for heroin and cocaine History of Present Illness: 49 yo M Presents to [facility] for detox. pt is very agitated and irritable and not willing to answer many questions. Heroin: 2 bundles/ day. been using > 30 y Cocaine: $100 / day . been using > 30 years denied cigarette use at this time denied alcohol use Pt in detox . - Smoking History Smoking history: Current every day smoker Have you smoked in the past 12 months: Yes Aproximately how many cigarettes per day: 10 - Alcohol/Substance Use Hx Alcohol Use: No Admission ROS [facility] Allergies/Adverse Reactions: Allergies Allergy/AdvReac Type Severity Reaction Status Date / Time No Known Allergies Allergy Verified 12/05/19 21:07 - Ebola screening Have you traveled outside of the country in the last 21 days: No (N) Have you had contact with anyone from an Ebola affected area: No Do you have a fever: No - Review of Systems Constitutional: No Symptoms Reported EENT: reports: No Symptoms Reported Respiratory: reports: No Symptoms reported Cardiac: reports: No Symptoms Reported GI: reports: No Symptoms Reported Integumentary: reports: No Symptoms Reported Neuro: reports: No Symptoms reported Psychiatric: reports: Agitated Patient History - Patient Medical History Hx Anemia: No Hx Asthma: No Hx Chronic Obstructive Pulmonary Disease (COPD): No Hx Cancer: No Hx Cardiac Disorders: No Hx Congestive Heart Failure: No Hx Hypertension: No Hx Hypercholesterolemia: No Hx Pacemaker: No HX Cerebrovascular Accident: No Hx Seizures: No Hx Dementia: No Hx Diabetes: No Hx Gastrointestinal Disorders: No Hx Liver Disease: No Hx Genitourinary Disorders: No Hx Sexually Transmitted Disorders: No Hx Renal Disease (ESRD): No Hx Thyroid Disease: No Hx Human Immunodeficiency Virus (HIV): No (LAST NEGATIVE 2014) Hx Hepatitis C: No Hx Depression: No (BUT WANTS TO SEE PSYCH) Hx Suicide Attempt: No (DENIES S/I) Hx Bipolar Disorder: No Hx Schizophrenia: No - Patient Surgical History Past Surgical History: No Hx Neurologic Surgery: No Hx Cataract Extraction: No Hx Cardiac Surgery: No Hx Lung Surgery: No Hx Breast Surgery: No Hx Breast Biopsy: No Hx Abdominal Surgery: No Hx Appendectomy: No Hx Cholecystectomy: No Hx Genitourinary Surgery: No Hx Section: No Hx Orthopedic Surgery: No Anesthesia Reaction: No - PPD History Date: 12/08/19 Results: 0 mm - Smoking Cessation Smoking history: Current every day smoker Have you smoked in the past 12 months: Yes Aproximately how many cigarettes per day: 10 Cigars Per Day: 0 Hx Chewing Tobacco Use: No Initiated information on smoking cessation: Yes 'Breaking Loose' booklet given: 12/06/19 - Substances abused Heroin Substance route: Injection Frequency: Daily Amount used: 10 bags Age of first use: 31 Date of last use: 12/04/19 Cocaine Substance route: Smoking Frequency: Daily Amount used: 2 bags Age of first use: 31 Date of last use: 12/04/19 Alcohol Substance route: Oral Frequency: Daily Amount used: 1 pint of vodka Age of first use: 21 Date of last use: 12/04/19 Admission Physical Exam [facility] - Vital Signs Vital Signs: Vital Signs - 24 hr 12/05/19 12/06/1912/06/20 21:07 06:44 09:15 Temperature 97.9 F 99.6 F 98.8 F Pulse Rate 70 63 77 Respiratory 16 18 18 Rate Blood Pressure 109/66 119/74 122/64 12/06/19 13:08 Temperature 99.0 F Pulse Rate 67 Respiratory 16 Rate Blood Pressure 122/63 - Physical General Appearance: Yes: Tremorous, Irritable, Anxious HEENTM: Yes: Hearing grossly Normal, Normocephalic, Normal Voice, FORREST Respiratory: Yes: Lungs Clear, Normal Breath Sounds, No Respiratory Distress, No Accessory Muscle Use Cardiology: Yes: Within Normal Limits, Regular Rhythm, Regular Rate, S1, S2. No : JVD, Murmur Abdominal: Yes: Non Tender, Flat, Soft Musculoskeletal: Yes: full range of Motion Extremities: Yes: Normal Inspection Neurological: Yes: sales center associate II-XII NML intact - Diagnostic (1) Heroin abuse Current Visit: Yes Status: Acute (2) Cocaine dependence, uncomplicated Current Visit: No Status: Chronic Cleared for Admission S - Detox or Rehab [facility] Level of Care: Medically Managed Breathalyzer - Breathalyzer Breathalyzer: 0 Urine Drug Screen - Test Device Lot number: [id number] Expiration date: 06/12/21 - Control Is test valid?: Yes - Results Drug screen NEGATIVE: No Urine drug screen results: LYDIA-Cocaine, FEN-Fentanyl, MOP-Opiates, MTD-Methadone , BZO-Benzodiazepines Inpatient Rehab Admission - Rehab Decision to Admit Inpatient rehab admission?: No
[2019-12-06] MEDS: chlordiazePOXIDE HCL 25 MG CAPSULE PO SCH (22:27)
[2019-12-06] MEDS: THIAMINE HCL 100 MG TABLET (FP) PO SCH (22:27)
[2019-12-07] MEDS: chlordiazePOXIDE HCL 25 MG CAPSULE PO SCH ×4 (05:45→22:20)
[2019-12-07] MEDS ORDERED: METHADONE HCL 10 MG TABLET (FOR DETOX USE ONLY) ONE (09:09)
[2019-12-07] MEDS ORDERED: METHADONE HCL 5 MG TABLET (FOR DETOX USE ONLY) ONE (09:10)
[2019-12-07] MEDS ORDERED: METHADONE (DETOX) 20 MG, METHADONE (DETOX) 5 MG PO ONE (10:00)
[2019-12-07] MEDS: PRENATAL VITAMINS W/ FOLIC ACID TABLET (FP) PO SCH (10:35)
[2019-12-07] MEDS: NICOTINE 14 MG/24 HOURS TOPICAL PATCH TD SCH (10:37)
--- NOTE | 2019-12-07 10:48 | PN ---
[facility] CIWA - CIWA Score Nausea/Vomitin-No Nausea/No Vomiting Muscle Tremors: 2 Anxiety: 3 Agitation: 0-Normal Activity Paroxysmal Sweats: 3 Orientation: 0-Oriented Tacttile Disturbances: 0-None Auditory Disturbances: 0-None Visual Disturbances: 0-None Headache: 2-Mild CIWA-Ar Total Score: 10 S COWS - Scale Resting Pulse: 0= [place] 80 or Below Sweatin= Beads of Sweat on Face Restless Observation: 1= Difficult to Sit Still Pupil Size: 0= Normal to Room Light Bone or Joint Aches: 1= Mild Discomfort Runny Nose/ Eye Tearin= None GI Upset > 30mins: 0= None Tremor Observation of Outstretched Hands: 2= Slight Tremor Visible Yawning Observation: 1= 1-2x During Session Anxiety or Irritability: 2=Irritable/Anxious Goose Flesh Skin: 0=Smooth Skin COWS Score: 10 [facility] Progress Note (SOAP) Subjective: c/o muscle aches, headache, sweats, anxiety, and shakes. Objective: 12/07/19 10:47 Vital Signs 12/07/19 12/07/19 03:30 06:20 Temperature 98.9 F Pulse Rate 59 L Respiratory 18 18 Rate Blood Pressure 120/69 Labs pending. Assessment: 12/07/19 10:48 AOX3, in no acute respiratory distress. Full ROM, ambulating in the unit. Withdrawal symptoms. Plan: continue detox.
[2019-12-07 11:23] LABS: HEMATOCRIT 37.6 % (35.4-49); HEMOGLOBIN 12.2 GM/dL (11.7-16.9); MCH 27.2 pg (25.7-33.7); MCHC 32.3 g/dl (32.0-35.9); MEAN PLT VOLUME 8.9 fl (7.5-11.1); PLATELET COUNT 343 K/MM3 (134-434); RBC 4.47 M/mm3 (4.00-5.60); RDW 16.2 % (11.9-15.9); WHITE BLOOD COUNT 4.4 K/mm3 (4.0-10.0)
[2019-12-07 11:39] LABS: ALBUMIN 3.4 g/dl (3.4-5.0); BILIRUBIN,TOTAL 0.6 mg/dL (0.2-1); BLOOD UREA NITROGEN 9.6 mg/dL (7-18); CALCIUM 9.1 mg/dL (8.5-10.1); CREATININE 0.8 mg/dL (0.55-1.3); POTASSIUM 4.9 mmol/L (3.5-5.1); TOT PROT 7.2 g/dl (6.4-8.2)
[2019-12-07] MEDS: THIAMINE HCL 100 MG TABLET (FP) PO SCH (22:20)
[2019-12-08] MEDS: chlordiazePOXIDE HCL 25 MG CAPSULE PO SCH ×4 (05:56→22:12)
--- NOTE | 2019-12-08 05:57 | PN ---
Teaching Attending Note Name of Resident: Yanet Grullon ATTENDING PHYSICIAN STATEMENT I saw and evaluated the patient. I reviewed the resident's note and discussed the case with the resident. I agree with the resident's findings and plan as documented. SUBJECTIVE: Agree with resident's subjective findings OBJECTIVE: Agree with resident's objective findings ASSESSMENT AND PLAN: Agreed with resident's plan for detox from opiates.
[2019-12-08] MEDS ORDERED: METHADONE HCL 10 MG TABLET (FOR DETOX USE ONLY) PO ONE (10:00)
--- NOTE | 2019-12-08 10:03 | PN ---
S CIWA - CIWA Score Nausea/Vomitin-Mild Nausea/No Vomiting Muscle Tremors: 3 Anxiety: 2 Agitation: 1-Slight > Activity Paroxysmal Sweats: 2 Orientation: 0-Oriented Tacttile Disturbances: 0-None Auditory Disturbances: 0-None Visual Disturbances: 0-None Headache: 0-None Present CIWA-Ar Total Score: 9 BHS COWS - Scale Resting Pulse: 0= CT 80 or Below Sweatin= Chills/Flushing Restless Observation: 0= Sits Still Pupil Size: 1= Pupils >than Normal Bone or Joint Aches: 1= Mild Discomfort Runny Nose/ Eye Tearin= Nasal Congestion GI Upset > 30mins: 1= Stomach Cramp Tremor Observation of Outstretched Hands: 2= Slight Tremor Visible Yawning Observation: 0= None Anxiety or Irritability: 1=Feels Anxious/Irritable Goose Flesh Skin: 0=Smooth Skin COWS Score: 8 BHS Progress Note (SOAP) Subjective: 49 years old male admitted on 12/06/28 for alcohol and opiate withdrawal sx management treateing with librium and methadonedet ox regimen feeling ok today resting in bed discussed aftercare with staff Objective: 12/08/19 10:03 Vital Signs Temperature 99.5 F 12/08/19 09:23 Pulse Rate 67 12/08/19 09:23 Respiratory Rate 18 12/08/19 09:23 Blood Pressure 121/74 12/08/19 09:23 O2 Sat by Pulse Oximetry (%) Laboratory Last Values WBC 4.4 K/mm3 (4.0-10.0) 12/07/19 08:00 RBC 4.47 M/mm3 (4.00-5.60) 12/07/19 08:00 Hgb 12.2 GM/dL (11.7-16.9) 12/07/19 08:00 Hct 37.6 % (35.4-49) 12/07/19 08:00 MCV 84.0 fl (80-96) 12/07/19 08:00 MCH 27.2 pg (25.7-33.7) 12/07/19 08:00 MCHC 32.3 g/dl (32.0-35.9) 12/07/19 08:00 RDW 16.2 % (11.9-15.9) H 12/07/19 08:00 Plt Count 343 K/MM3 (134-434) D 12/07/19 08:00 MPV 8.9 fl (7.5-11.1) 12/07/19 08:00 Sodium 138 mmol/L (136-145) 12/07/19 08:00 Potassium 4.9 mmol/L (3.5-5.1) 12/07/19 08:00 Chloride 104 mmol/L (98-107) 12/07/19 08:00 Carbon Dioxide 30 mmol/L (21-32) 12/07/19 08:00 Anion Gap 5 MMOL/L (8-16) L 12/07/19 08:00 BUN 9.6 mg/dL (7-18) 12/07/19 08:00 Creatinine 0.8 mg/dL (0.55-1.3) 12/07/19 08:00 Est GFR (CKD-EPI)AfAm 122.43 12/07/19 08:00 Est GFR (CKD-EPI)NonAf 105.63 12/07/19 08:00 Random Glucose 104 mg/dL (74-106) 12/07/19 08:00 Calcium 9.1 mg/dL (8.5-10.1) 12/07/19 08:00 Total Bilirubin 0.6 mg/dL (0.2-1) 12/07/19 08:00 AST 8 U/L (15-37) L 12/07/19 08:00 ALT 17 U/L (13-61) 12/07/19 08:00 Alkaline Phosphatase 80 U/L (45-117) 12/07/19 08:00 Total Protein 7.2 g/dl (6.4-8.2) 12/07/19 08:00 Albumin 3.4 g/dl (3.4-5.0) 12/07/19 08:00 lab noted Assessment: 12/08/19 10:04 alcohol and opiate withdrawal Plan: librium and methadone regiments
[2019-12-08] MEDS: NICOTINE 14 MG/24 HOURS TOPICAL PATCH TD SCH (10:33)
[2019-12-08] MEDS: PRENATAL VITAMINS W/ FOLIC ACID TABLET (FP) PO SCH (10:33)
[2019-12-08] MEDS: THIAMINE HCL 100 MG TABLET (FP) PO SCH (22:11)
[2019-12-09] MEDS ORDERED: chlordiazePOXIDE HCL 10 MG CAPSULE PO PRN
[2019-12-09] MEDS ORDERED: chlordiazePOXIDE HCL 10 MG CAPSULE PO SCH (05:00)
[2019-12-09] MEDS ORDERED: METHADONE HCL 10 MG TABLET (FOR DETOX USE ONLY) ONE (09:22)
[2019-12-09] MEDS ORDERED: METHADONE HCL 5 MG TABLET (FOR DETOX USE ONLY) ONE (09:22)
[2019-12-09 09:23] VITALS: BP 134/76; PULSE 80; TEMP 97
[2019-12-09] MEDS ORDERED: METHADONE (DETOX) 10 MG, METHADONE (DETOX) 5 MG PO ONE (10:00)
--- NOTE | 2019-12-09 10:17 | DS ---
[facility] Detox Discharge Summary Admission Date: 12/06/19 Discharge Date: 12/09/19 - History Present History: Alcohol Dependence, Opioid Dependence Additional Comments: 49 years old male admitted on 12/06/19 for alcohol and opiate withdrawal sx management treated with librium and methadone detox regimen patient prefers to leave the detox unit today that medication assisted treatment program is suitable for him patient is alert oriented x 3 ambulating steady gait speech clearly and coherently cardiac [id number] regular rate rhythm respiratory clear lungs bilaterally on auscultation skin warm and dry Pertinent Past History: patient agrees to return to [facility] and begin suboxone maintenance program - Physical Exam Results Vital Signs: Vital Signs Temperature 97.0 F L 12/09/19 09:22 Pulse Rate 80 12/09/19 09:22 Respiratory Rate 16 12/09/19 09:22 Blood Pressure 134/76 12/09/19 09:22 O2 Sat by Pulse Oximetry (%) Pertinent Admission Physical Exam Findings: alcohol and opiate withdrawal Vital Signs Temperature 97.0 F L 12/09/19 09:22 Pulse Rate 80 12/09/19 09:22 Respiratory Rate 16 12/09/19 09:22 Blood Pressure 134/76 12/09/19 09:22 O2 Sat by Pulse Oximetry (%) Laboratory Last Values WBC 4.4 K/mm3 (4.0-10.0) 12/07/19 08:00 RBC 4.47 M/mm3 (4.00-5.60) 12/07/19 08:00 Hgb 12.2 GM/dL (11.7-16.9) 12/07/19 08:00 Hct 37.6 % (35.4-49) 12/07/19 08:00 MCV 84.0 fl (80-96) 12/07/19 08:00 MCH 27.2 pg (25.7-33.7) 12/07/19 08:00 MCHC 32.3 g/dl (32.0-35.9) 12/07/19 08:00 RDW 16.2 % (11.9-15.9) H 12/07/19 08:00 Plt Count 343 K/MM3 (134-434) D 12/07/19 08:00 MPV 8.9 fl (7.5-11.1) 12/07/19 08:00 Sodium 138 mmol/L (136-145) 12/07/19 08:00 Potassium 4.9 mmol/L (3.5-5.1) 12/07/19 08:00 Chloride 104 mmol/L (98-107) 12/07/19 08:00 Carbon Dioxide 30 mmol/L (21-32) 12/07/19 08:00 Anion Gap 5 MMOL/L (8-16) L 12/07/19 08:00 BUN 9.6 mg/dL (7-18) 12/07/19 08:00 Creatinine 0.8 mg/dL (0.55-1.3) 12/07/19 08:00 Est GFR (CKD-EPI)AfAm 122.43 12/07/19 08:00 Est GFR (CKD-EPI)NonAf 105.63 12/07/19 08:00 Random Glucose 104 mg/dL (74-106) 12/07/19 08:00 Calcium 9.1 mg/dL (8.5-10.1) 12/07/19 08:00 Total Bilirubin 0.6 mg/dL (0.2-1) 12/07/19 08:00 AST 8 U/L (15-37) L 12/07/19 08:00 ALT 17 U/L (13-61) 12/07/19 08:00 Alkaline Phosphatase 80 U/L (45-117) 12/07/19 08:00 Total Protein 7.2 g/dl (6.4-8.2) 12/07/19 08:00 Albumin 3.4 g/dl (3.4-5.0) 12/07/19 08:00 RPR Titer Nonreactive (NONREACTIVE) 12/07/19 08:00 lab noted strong recommend the patient to [facility] narcan from pharmacy - Treatment Hospital Course: Detox Protocol Followed, Detoxed Safely, Responded well, Discharged Condition Good, Rehab Referral Accepted Patient has Accepted a Re[facility] Referral to: [facility] - Medication Discharge Medications: Ambulatory Orders Naloxone HCl [Narcan] 4 mg NS ASDIR PRN #1 spray 12/08/19 - Diagnosis (1) Alcohol dependence, uncomplicated Current Visit: Yes Status: Acute (2) Opioid dependence with withdrawal Current Visit: Yes Status: Acute (3) Substance induced mood disorder Current Visit: Yes Status: Suspected (4) Nicotine dependence Current Visit: Yes Status: Acute Qualifiers: Nicotine product type: cigarettes Substance use status: in withdrawal Qualified Code(s): F17.213 - Nicotine dependence, cigarettes, with withdrawal - AMA Did Patient Leave Against Medical Advice: No CIWA Score - CIWA Score Nausea/Vomitin-Mild Nausea/No Vomiting Muscle Tremors: 2 Anxiety: 1-Mildly Anxious Agitation: 1-Slight > Activity Paroxysmal Sweats: 1-Minimal Palms Moist Orientation: 0-Oriented Tacttile Disturbances: 0-None Auditory Disturbances: 0-None Visual Disturbances: 0-None Headache: 0-None Present CIWA-Ar Total Score: 6 COWS (PN) - Opiate Withdrawal Resting Pulse: 0= [place] 80 or Below Sweatin= Chills/Flushing Restless Observation: 0= Sits Still Pupil Size: 0= Normal to Room Light Bone or Joint Aches: 1= Mild Discomfort Runny Nose/ Eye Tearin= None GI Upset > 30mins: 0= None Tremor Observation of Outstretched Hands: 1= Tremor [place], Not Seen Yawning Observation: 0= None Anxiety or Irritability: 1=Feels Anxious/Irritable Goose Flesh Skin: 0=Smooth Skin COWS Score: 4
[2019-12-10] MEDS ORDERED: chlordiazePOXIDE HCL 10 MG CAPSULE PO SCH (05:00)
[2019-12-10] MEDS ORDERED: METHADONE HCL 10 MG TABLET (FOR DETOX USE ONLY) PO ONE (10:00)
[2019-12-11] MEDS ORDERED: chlordiazePOXIDE HCL 10 MG CAPSULE PO ONE (05:00)
[2019-12-11] MEDS ORDERED: METHADONE HCL 5 MG TABLET (FOR DETOX USE ONLY) PO ONE (06:00)
== END 2019-12-09 10:41 | disposition home or self-care (01) | DRG 773 ==
LOC: YASAS 18:07 → Y3N 12-06 04:54
PROVIDERS: ADMIT Allergy & Immunology; ATTEND Allergy & Immunology
PROC: HZ2ZZZZ Detoxification Services for Substance Abuse Treatment (ICD-10-PCS; principal; 2019-12-06)
DX: F11.23 Opioid dependence with withdrawal (principal); F10.230 Alcohol dependence with withdrawal, uncomplicated; F17.213 Nicotine dependence, cigarettes, with withdrawal; F19.24 Other psychoactive substance dependence with psychoactive substance-induced mood disorder
CPT/HCPCS: 36415; 80053; 85027; 86593; 93005; 93010